=== PATIENT | male | born 1975 | race Asian ===

== ENCOUNTER → 2017-10-05 09:05 | Outpatient (CLI) | payer OTHER, SELFPAY ==
[2017-10-05 10:26] LABS: Hematocrit 45.9 % (40-54); Hemoglobin 15.6 g/dl (13.0-16.5); Mean Corpuscular Hgb 28.6 pg (27.0-32.0); Mean Corpuscular Volume 84.2 fL (80-94); Mean Platelet Vol. 11.5 fl (6.2-12.0); Platelet Count 228 K/mm3 (150-450); RBC Distribution Width SD 40.2 fl (35.1-43.9); Red Blood Count 5.45 M/mm3 (4.6-6.2); Scan Indicated on CBC? Y/N NO; White Blood Count 5.5 K/mm3 (4.4-11.0)
[2017-10-05 11:10] LABS: ALB/GLOB Ratio 0.9 RATIO (0.9-2.4); AST(SGOT) 22 U/L (15-37); Alanine Aminotransfer ALT/SGPT 37 U/L (16-61); Alkaline Phosphatase 63 U/L (45-117); Anion Gap 7 (5-15); BUN 9 mg/dL (7-18); BUN/Creat Ratio 10.3 RATIO (10-20); Calcium,Total 8.9 mg/dL (8.5-10.1); Chloride 102 mmol/L (98-107); Cholesterol 226 mg/dL (200); Creatinine, Serum 0.88 mg/dL (0.70-1.30); EST Glomerular Filtration Rate 102 mL/min (>60); Est Glom Filt Rate - Afr Amer 124 mL/min (>60); Globulin 4.5 g/dL (2.2-4.2); Glucose 97 mg/dL (74-106); High Density Lipoprotein 43 mg/dL; Potassium 3.8 mmol/L (3.5-5.1); Protein, Total 8.5 g/dL (6.4-8.2); Sodium Level 137 mmol/L (136-145); Thyroid Stim Hormone (TSH) 2.44 uIU/mL (0.358-3.74); Triglycerides 160 mg/dL; Very Low Density Lipoprotein 32 mg/dL (5-40)
== END ==
PROVIDERS: Family Provider Internal Medicine; PCP Internal Medicine; Visit Provider Nurse Practitioner Family
DX: Z13.0 Encounter for screening for diseases of the blood and blood-forming organs and certain disorders involving the immune mechanism (principal); Z13.29 Encounter for screening for other suspected endocrine disorder; Z13.220 Encounter for screening for lipoid disorders
CPT/HCPCS: 36415; 80053; 80061; 84443; 85027

== ENCOUNTER → 2018-03-29 16:26 | Outpatient (CLI) | payer OTHER, SELFPAY ==
[2018-03-29 18:54] LABS: Absolute Lymphocyte Count 2.27 X10^3/ul (0.83-4.51); Absolute Neutrophil Count 4.5 X10^3/uL (2.0-7.7); Basophil# 0.04 X10^3/uL; Basophil% 0.5 % (0-1); Eosinophil# 0.12 X10^3/uL; Eosinophils% 1.6 % (0-5); Hematocrit 42.7 % (40-54); Hemoglobin 14.4 g/dl (13.0-16.5); Lymphocyte # 2.27 X10^3/ul (4.0); Lymphocyte % 30.6 % (19-41); Mean Corp Hgb Conc 33.7 g/gl (32-36); Mean Corpuscular Hgb 28.1 pg (27.0-32.0); Mean Corpuscular Volume 83.4 fL (80-94); Mean Platelet Vol. 11.1 fl (6.2-12.0); Monocyte# 0.48 X10^3/uL; Monocyte% 6.5 % (0-10); Neutrophil # 4.49 X10^3/uL (2.7-7.7); Neutrophil % 60.7 % (47-70); POSITIVE COUNT NO; POSITIVE DIFFERENTIAL NO; POSITIVE MORPHOLOGY NO; Platelet Count 237 K/mm3 (150-450); RBC Distribution Width SD 39.7 fl (35.1-43.9); Red Blood Count 5.12 M/mm3 (4.6-6.2); White Blood Count 7.4 K/mm3 (4.4-11.0)
[2018-03-29 19:05] LABS: ALB/GLOB Ratio 0.9 RATIO (0.9-2.4); AST(SGOT) 22 U/L (15-37); Alanine Aminotransfer ALT/SGPT 33 U/L (16-61); Albumin, Serum 3.9 g/dL (3.2-5.0); Alkaline Phosphatase 65 U/L (45-117); Anion Gap 8 (5-15); BUN 9 mg/dL (7-18); BUN/Creat Ratio 8.3 RATIO (10-20); Calcium,Total 8.7 mg/dL (8.5-10.1); Chloride 104 mmol/L (98-107); Creatinine, Serum 1.08 mg/dL (0.70-1.30); EST Glomerular Filtration Rate 80 mL/min (>60); Est Glom Filt Rate - Afr Amer 97 mL/min (>60); Globulin 4.3 g/dL (2.2-4.2); Glucose 80 mg/dL (74-106); Potassium 3.7 mmol/L (3.5-5.1); Protein, Total 8.2 g/dL (6.4-8.2); Sodium Level 139 mmol/L (136-145)
== END ==
PROVIDERS: Family Provider Internal Medicine; PCP Internal Medicine; Visit Provider Internal Medicine
DX: R10.9 Unspecified abdominal pain (principal)
CPT/HCPCS: 36415; 80053; 85025

== ENCOUNTER → 2018-03-30 07:27 | Outpatient (CLI) | payer OTHER, SELFPAY | PROVIDERS: Family Provider Internal Medicine; PCP Internal Medicine; Visit Provider Internal Medicine | DX: R10.9 Unspecified abdominal pain (principal) | CPT/HCPCS: 82274 ==

== ENCOUNTER 2019-08-01 06:42 | Day surgery (SDC) | payer OTHER, SELFPAY ==
--- NOTE | 2019-06-20 02:26 | HP_ITS ---
Intake Vital Signs 06/20/19 Body Mass Index (BMI) 28.0 06/20/19 Height 5 ft 7 in 06/20/19 Weight: 190 lb 06/20/19 Body Mass Index (BMI) 29.7 06/20/19 Blood Pressure 146/90 H 06/20/19 Blood Pressure Location Rt brachial 06/20/19 Blood Pressure Position Sitting 06/20/19 Respiratory Rate 18 06/20/19 Pulse Rate 92 06/20/19 Pulse Source Monitor 06/20/19 Temperature 98.1 F 06/20/19 Temperature Source Oral 06/20/19 Pulse Ox 95 06/20/19 Oxygen Delivery Method room air Intake Visit Reasons: DYSPEPSIA Chief Complaint: Abdominal pain Transfer Car Operator Required: No Accompanied by: Is patient in pain?: No Allergies No Known Allergies Allergy (Verified 06/20/19 13:11) [facility] Medical History GERD (gastroesophageal reflux disease) (Chronic) Hypertension (Chronic) Cataract (Acute) Glaucoma (Acute) Abdominal pain (Chronic) Tinea capitis (Chronic) Surgical History History of appendectomy (Acute) Family History Grandfather Colon cancer Social History (Updated 06/20/19 @ 14:26 by Jose Daniel Dykes MD) Smoking Status: Former smoker how long ago did patient quit smokin alcohol intake: current alcohol intake frequency: holidays/special occasions only substance use type: does not use what type of physical activity do you participate in: none HPI HPI HPI: ZACH CAPPS, is a 43 M who presents to the office today for HPI HPI Surgical H&P: Yes HPI: ZACH CAPPS, is a 43 M who presents to the office today for surgical consultation regarding postprandial abdominal pain. The patient is referred by Dr Dixon Ospina written copy of my surgical consult recommendations will return to him. 43-year-old gentleman. Claims that over the past 1 year he has had diffuse abdominal discomfort cramping. No fever or chills or sweats. Slight nausea no real vomiting. He claims that if he eats a late lunch and a late dinner he will awaken with cramping. If he eats his meals at a normal time he does not have the discomfort. He has a family history with a grandfather who had colon cancer. He has not noticed any bright red blood per rectum or melena. He has not had any weight loss over the past year. He is not had any CT imaging. There is been no presentations to the emergency room or hospitalizations for symptoms that would correlate with a bowel obstruction. He does not describe a particular location of the pain simply states that it is diffuse and aching ROS General General: No weight change, appetite, fatigue, colon cancer, breast cancer or weakness HEENT HEENT: No difficulty swallowing, eye injury, eye surgery, swollen glands or hoarseness Endo Endocrine: No thyroid disease, diabetes mellitus, thyroid cancer, Hair loss, heat intolerance or cold intolerance Skin Skin: No rash or changing moles Breast Breast: No left breast lump, right breast lump, nipple discharge, breast pain, abnormal mammogram, abnormal US or breast enlargement Musc Musculoskeletal: No back problems, arthritis, rheumatoid arthritis, gout or joint pain Cardio Cardiovascular: No murmur, pacemaker, heart disease, atrial fibrillation, high blood pressure, heart attack, heart stent, palpitations, shortness of breat with exertion or chest pain Psych Psychiatric: Yes anxiety; no depression or hearing voices Resp Respiratory: No shortness of breath, No sleep apnea, No cough, No COPD, No asthma, No emphysema, No wheezing Gastro Gastrointestinal: Yes abdominal pain, No nausea or vomiting, No diarrhea, No constipation, No blood in stool, No acid reflux, No hemorrhoids, No ulcers, No gallbladder problem, No black,tarry stools Henrry Hematologic: No blood thinners, No blood disorders, No bleeding, No anemia, No blood clots Neuro Neurologic: No system reviewed and no additional complaints, except as docu, No as per HPI, No abnormal walking, No abnormal hearing, No abnormal movements, No abnormal speech, No behavioral changes, No burning sensations, No confusion, No seizure-like activity, No unsteadiness, No dizziness, No localized weakness, No frequent falls, No headache(s), No lack of coordination, No loss of vision, No memory loss, No numbness, No other visual disturbances, No radiating pain, No restless legs, No sensory deficit, No fainting, No tingling, No tremor(s), No weakness, No other Exam Const General: cooperative, comfortable, no acute distress Nutritional Appearance: overweight Orientation: alert, awake Chest Breast Palpation: No nipple discharge Resp Effort & Inspection: normal respiratory effort Auscultation: clear to auscultation bilaterally Cardio Rate: regular rate Rhythm: regular rhythm Heart Sounds: no murmurs GI Palpation: soft, no hepatosplenomegaly Auscultation: normal bowel sounds Neuro Cognition: normal cognition Extrem General: no calf tenderness bilaterally Psych Affect: normal affect Assessment & Plan Problems 1. Generalized abdominal pain R10.84 Plan Generalized abdominal pain typically postprandially but only if he eats late. Very nonspecific presentation. Family history of colon cancer in a grandfather. Symptoms improved with proton pump inhibitor omeprazole but with the effects then waning and symptoms recurring despite its use. Benign clinical exam of the abdomen I have offered the patient a esophagogastroduodenoscopy with possible biopsy and colonoscopy with possible biopsy or polypectomy is indicated. I am not getting a clear etiology as the potential source of his discomfort based upon his history and physical exam. He is aware that I will consider biopsies were indicated in attempt to try to assist with the diagnosis. He has had an opportunity to ask and have questions answered. We will schedule and proceed at his discretion. I very much appreciate the kind opportunity of assisting with his surgical care. Cc: Dr Dixon Dykes M.D., F.A.C.S. Coding Level of Care Code 63630 Diagnoses Generalized abdominal pain R10.84 ??Abdominal location: generalized 06/20/19 1426 <Electronically signed by Jose Daniel dyson MD> Date _ Jose Daniel Dykes MD I have re-examined the patient. There are no clinical changes since date of exam.
[2019-06-20 13:12] VITALS: BMI 28.0
[2019-08-01] VITALS (8 sets, daily range): BP systolic 94–128; BP diastolic 57–74; PULSE 68–100; RESP 16; TEMP 36.3–37.1; O2SAT 94–100; BMI 29.2
[2019-08-01] MEDS: Lactated Ringers 1,000 ML 100 ML IV (07:24)
--- NOTE | 2019-08-01 08:00 | EGD_PTH ---
PATIENT: ZACH CAPPSOO LOC: EN U#:[id number] AGE/SX: 43/M ROOM: RE08/01/[address]: Dr. Jose Daniel Dykes MD : 1975 BED: DIS: 08/01/2019 SPEC #: [id number] RECD: 08/01/19 09:49 STATUS: RAPHAEL ALLY #: [id number] ALANA: 08/01/19 08:[address]: Jose Daniel Dykes DEPT: SURGICAL PATHOLOGY RECD BY: Nba Velasco ENTERED: 08/01/19 13:15 SP TYPE: EGD BIOPSY OTHR DR: No Primary Care Phys Tissues: A - Duodenum, NOS B - Gastric mucous membrane C - Esophageal mucous membrane D - Esophageal mucous membrane E - Ileum, NOS F - COLON BIOPSY Procedures: Special Stain Group II Surgery Specimen Level IV Alcian Blue/PAS (control) HEADER OPERATION: Colonoscopy, E[place] [place] PRE[place]OP DIAGNOSIS: Generalized abdomen pain TISSUE SUBMITTED: A - Duodenum biopsy, B - Prepyloric ulcer biopsy for H. pylori and path, C - Distal esophagus biopsy, D - Mid esophagus biopsy, E - Ileocecal valve biopsy, F - Random colon biopsies MICROSCOPIC DIAGNOSIS A. Duodenum, biopsy: A fragment of duodenal mucosa with Linus gland hyperplasia. B. Prepyloric ulcer, biopsy: Fragments of gastric mucosa with focal ulceration, acute inflammation and moderate chronic inflammation. See comment. C. Distal esophagus, biopsy: A fragment of gastroesophageal mucosa with moderate chronic inflammation. Intestinal metaplasia (goblet cell metaplasia) is not identified. See comment. D. Mid esophagus, biopsy: Fragments of squamous epithelium, no pathologic diagnosis. E. Ileocecal valve, biopsy: Fragments of small intestinal mucosa, no pathologic diagnosis. F. Colon, random biopsy: Fragments of colonic mucosa, no pathologic diagnosis. SJ:seamus 08/02/19 COMMENT B. The results of immunohistochemistry for Helicobacter pylori will be reported separately ([id number]). C. Alcian blue/PAS stain with matched control is used in the evaluation of the specimen. MICROSCOPIC DESCRIPTION Slides are reviewed. GROSS DESCRIPTION A - Received in fixative is one container labeled with the patient's name and designated duodenum biopsy. The specimen consists of one irregular fragment of light oliva soft tissue that measures 0.4 x 0.4 x 0.1 cm. The specimen is totally submitted in one cassette. B - Received in fixative is one container labeled with the patient's name and designated prepyloric ulcer biopsy. The specimen consists of one irregular fragment of light oliva soft tissue that measures 0.4 x 0.4 x 0.1 cm. The specimen is totally submitted in one cassette. C - Received in fixative is one container labeled with the patient's name and designated distal esophagus biopsy. The specimen consists of one irregular fragment of light oliva soft tissue that measures 0.5 x 0.3 x 0.1 cm. The specimen is totally submitted in one cassette. D - Received in fixative is one container labeled with the patient's name and designated mid esophagus biopsy. The specimen consists of two irregular fragments of light oliva soft tissue that in aggregate measure 0.6 x 0.2 x 0.1 cm. The specimen is totally submitted in one cassette. E - Received in fixative is one container labeled with the patient's name and designated ileocecal valve biopsy. The specimen consists of two irregular fragments of light oliva soft tissue that in aggregate measure 0.4 x 0.4 x 0.1 cm. The specimen is totally submitted in one cassette. F - Received in fixative is one container labeled with the patient's name and designated random colon biopsy. The specimen consists of multiple irregular fragments of light oliva soft tissue that in aggregate measure 1 x 0.5 x 0.1 cm. The specimen is totally submitted in one cassette. / RAMÓN:seamus 08/01/19 TC:2 CPT: 95309 x6, 65992
--- NOTE | 2019-08-01 08:00 | IMM_PTH ---
PATIENT: ZACH CAPPS IVETTE LOC: EN U#:[id number] AGE/SX: 43/M ROOM: RE08/01/[address]: Dr. Jose Daniel Dykes MD : 1975 BED: DIS: 08/01/2019 SPEC #: [id number] RECD: 08/01/19 12:36 STATUS: RAPHAEL REBrandee #: [id number] ALANA: 08/01/19 08:[address]: Jose Daniel Dykes DEPT: IMMUNOHISTOCHEMISTRY RECD BY: Gracia Ogden ENTERED: 08/01/19 12:37 SP TYPE: IMMUNO OTHR DR: Vivienne Primary Care Phys Tissues: B - Pyloric portion of stomach Procedures: H Pylori (initial) PHYSICIAN & INSTITUTION [place] [address] SPECIMEN INFORMATION: Tissue Source: B - Prepyloric ulcer biopsy Clinical Info: Abdomen pain Specimen Number: [id number] CPT code: 17126 METHODOLOGY: Deparaffinized sections of prefer/formalin-fixed tissue or PAP/DQ stained slides are incubated with monoclonal/polyclonal antibodies/oligonucleotide probes. Localization is made via biotin free immunoperoxidase method. Appropriate controls are performed and reacted as expected. Results on target cell population are indicated in the following table: RESULTS: ANTIBODY / CLONE RESULT Block B H Pylori (polyclonal) positive These tests were developed and their performance characteristics determined by [facility]. They may not have been cleared or approved by the U.S. Food and Drug Administration. The FDA has determined that such clearance or approval is not necessary. INTERPRETATION: B. Prepyloric ulcer biopsy: Positive for numerous H. pylori organisms. SJ:seamus 08/02/19
--- NOTE | 2019-08-01 08:40 | OP.CCLET_ITS ---
08/01/2019 No Primary Care Physician Re : Upper GI endoscopy procedure for Erasmo Rhodes Dear Care Physician This procedure was performed on Thursday, August 01, 2019. My impressions and recommendations are as follows: Impressions : - Z-line variable, 40 cm from the incisors. Biopsied. - Normal mid esophagus. Biopsied. - Non-bleeding gastric ulcer with no stigmata of bleeding. Findings suggest possible very small healed ulcer. Biopsied. - Normal examined duodenum. Biopsied. Recommendations : - Discharge patient to home. - Resume previous diet. - Continue present medications. - Use Prilosec (omeprazole) 40 mg PO daily for 1 month. - Telephone my office for pathology results in 1 week. My findings are described in the full procedure note, which is enclosed. If I can be of further assistance, please feel free to contact me at Doctor phone number(s): Work: . Sincerely, Jose Daniel Dykes MD 08/01/2019 8:40:01 AM This report has been signed electronically.
--- NOTE | 2019-08-01 08:40 | OP.EGD_ITS ---
Patient Name: Erasmo Rhodes Procedure Date: 08/01/2019 8:05 AM Date of : 1975 Age: 43 Procedure: Upper GI endoscopy Indications: Epigastric abdominal pain Providers: Jose Daniel Dykes MD Referring MD: Jose Daniel Dykes MD Medicines: See the Anesthesia note for documentation of the administered medications Complications: No immediate complications. Procedure: Pre-Anesthesia Assessment: - Prior to the procedure, a History and Physical was performed, and patient medications and allergies were reviewed. The patient's tolerance of previous anesthesia was also reviewed. The risks and benefits of the procedure and the sedation options and risks were discussed with the patient. All questions were answered, and informed consent was obtained. Prior Anticoagulants: The patient has taken no previous anticoagulant or antiplatelet agents. ASA Grade Assessment: II - A patient with mild systemic disease. After reviewing the risks and benefits, the patient was deemed in satisfactory condition to undergo the procedure. After obtaining informed consent, the endoscope was passed under direct vision. Throughout the procedure, the patient's blood pressure, pulse, and oxygen saturations were monitored continuously. The gastroscope was introduced through the mouth, and advanced to the second part of duodenum. The upper GI endoscopy was accomplished without difficulty. The patient tolerated the procedure well. Scope In: 8:17:20 AM Scope Out: 8:23:13 AM Total Procedure Duration Time 0 hours 5 minutes 53 seconds Findings: The Z-line was variable and was found 40 cm from the incisors. Biopsies were taken with a cold forceps for histology. The mid esophagus was normal. Biopsies were taken with a cold forceps for histology. One non-bleeding superficial gastric ulcer with no stigmata of bleeding was found in the prepyloric region of the stomach. The lesion was less than one mm in largest dimension. Biopsies were taken with a cold forceps for histology. The examined duodenum was normal. Biopsies were taken with a cold forceps for histology. Impression: - Z-line variable, 40 cm from the incisors. Biopsied. - Normal mid esophagus. Biopsied. - Non-bleeding gastric ulcer with no stigmata of bleeding. Findings suggest possible very small healed ulcer. Biopsied. - Normal examined duodenum. Biopsied. Recommendation: - Discharge patient to home. - Resume previous diet. - Continue present medications. - Use Prilosec (omeprazole) 40 mg PO daily for 1 month. - Telephone my office for pathology results in 1 week. Procedure Code(s): --- Professional --- 55581, Esophagogastroduodenoscopy, flexible, transoral; with biopsy, single or multiple Diagnosis Code(s): --- Professional --- K22.8, Other specified diseases of esophagus K25.9, Gastric ulcer, unspecified as acute or chronic, without hemorrhage or perforation R10.13, Epigastric pain CPT copyright 2017 [employer]. All rights reserved. The codes documented in this report are preliminary and upon residential direct support professional review may be revised to meet current compliance requirements. Jose Daniel Dykes MD 08/01/2019 8:40:01 AM This report has been signed electronically. Number of Addenda: 0 Note Initiated On: 08/01/2019 8:05 AM
--- NOTE | 2019-08-01 08:44 | OP.COLON_ITS ---
Patient Name: Erasmo Rhodes Procedure Date: 08/01/2019 8:03 AM Date of : 1975 Age: 43 Procedure: Colonoscopy Indications: Generalized abdominal pain Providers: Jose Daniel Dykes MD Referring MD: Jose Daniel Dykes MD Medicines: See the Anesthesia note for documentation of the administered medications Patient Profile: Last Colonoscopy: none. The patient's first colonoscopy is today. Complications: No immediate complications. Procedure: Pre-Anesthesia Assessment: - Prior to the procedure, a History and Physical was performed, and patient medications and allergies were reviewed. The patient's tolerance of previous anesthesia was also reviewed. The risks and benefits of the procedure and the sedation options and risks were discussed with the patient. All questions were answered, and informed consent was obtained. Prior Anticoagulants: The patient has taken no previous anticoagulant or antiplatelet agents. ASA Grade Assessment: II - A patient with mild systemic disease. After reviewing the risks and benefits, the patient was deemed in satisfactory condition to undergo the procedure. After I obtained informed consent, the scope was passed under direct vision. Throughout the procedure, the patient's blood pressure, pulse, and oxygen saturations were monitored continuously. The Colonoscope was introduced through the anus and advanced to the cecum, identified by appendiceal orifice and ileocecal valve. The colonoscopy was performed without difficulty. The patient tolerated the procedure well. The quality of the bowel preparation was good. The ileocecal valve and the appendiceal orifice were photographed. Scope In: 8:25:54 AM Scope Withdrawal Time 0 hours 7 minutes 18 seconds Scope Out: 8:35:16 AM Total Procedure Duration Time 0 hours 9 minutes 22 seconds Findings: Hemorrhoids were found on perianal exam. Normal mucosa was found at the ileocecal valve. Biopsies were taken with a cold forceps for histology. The colon (entire examined portion) appeared normal. Biopsies for histology were taken with a cold forceps from the entire colon for evaluation of microscopic colitis. Impression: - Hemorrhoids found on perianal exam. - Normal mucosa at the ileocecal valve. Biopsied. - The entire examined colon is normal. Biopsied. Recommendation: - Discharge patient to home. - Resume previous diet. - Continue present medications. - Repeat colonoscopy in 10 years. - Telephone my office for pathology results in 1 week. Procedure Code(s): --- Professional --- 88605, Colonoscopy, flexible; with biopsy, single or multiple Diagnosis Code(s): --- Professional --- K64.9, Unspecified hemorrhoids R10.84, Generalized abdominal pain CPT copyright 2017 [employer]. All rights reserved. The codes documented in this report are preliminary and upon information coder review may be revised to meet current compliance requirements. Jose Daniel Dykes MD 08/01/2019 8:43:41 AM This report has been signed electronically. Number of Addenda: 0 Note Initiated On: 08/01/2019 8:03 AM
--- NOTE | 2019-08-01 08:44 | OP.CCLET_ITS ---
08/01/2019 No Primary Care Physician Re : Colonoscopy procedure for Erasmo Rhodes Dear Care Physician This procedure was performed on Thursday, August 01, 2019. My impressions and recommendations are as follows: Impressions : - Hemorrhoids found on perianal exam. - Normal mucosa at the ileocecal valve. Biopsied. - The entire examined colon is normal. Biopsied. Recommendations : - Discharge patient to home. - Resume previous diet. - Continue present medications. - Repeat colonoscopy in 10 years. - Telephone my office for pathology results in 1 week. My findings are described in the full procedure note, which is enclosed. If I can be of further assistance, please feel free to contact me at Doctor phone number(s): Work: . Sincerely, Jose Daniel Dykes MD 08/01/2019 8:43:41 AM This report has been signed electronically.
--- NOTE | 2019-08-07 11:37 | HP.PCM_ITS ---
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 Accompanied by: Is patient in pain?: No Allergies No Known Allergies Allergy (Verified 06/20/19 13:11) [facility] Medical History GERD (gastroesophageal reflux disease) (Chronic) Hypertension (Chronic) Cataract (Acute) Glaucoma (Acute) Abdominal pain (Chronic) Tinea capitis (Chronic) Surgical History History of appendectomy (Acute) Family History Grandfather Colon cancer Social History (Updated 06/20/19 @ 14:26 by Jose Daniel Dykes MD) Smoking Status: Former smoker how long ago did patient quit smokin alcohol intake: current alcohol intake frequency: holidays/special occasions only substance use type: does not use what type of physical activity do you participate in: none HPI HPI HPI: ZACH CAPPS, is a 43 M who presents to the office today for HPI HPI Surgical H&P: Yes HPI: ZACH CAPPS, is a 43 M who presents to the office today for surgical consultation regarding postprandial abdominal pain. The patient is referred by Dr Dixon Ospina written copy of my surgical consult recommendations will return to him. 43-year-old gentleman. Claims that over the past 1 year he has had diffuse abdominal discomfort cramping. No fever or chills or sweats. Slight nausea no real vomiting. He claims that if he eats a late lunch and a late dinner he will awaken with cramping. If he eats his meals at a normal time he does not have the discomfort. He has a family history with a grandfather who had colon cancer. He has not noticed any bright red blood per rectum or melena. He has not had any weight loss over the past year. He is not had any CT imaging. There is been no presentations to the emergency room or hospitalizations for symptoms that would correlate with a bowel obstruction. He does not describe a particular location of the pain simply states that it is diffuse and aching ROS General General: No weight change, appetite, fatigue, colon cancer, breast cancer or weakness HEENT HEENT: No difficulty swallowing, eye injury, eye surgery, swollen glands or hoarseness Endo Endocrine: No thyroid disease, diabetes mellitus, thyroid cancer, Hair loss, heat intolerance or cold intolerance Skin Skin: No rash or changing moles Breast Breast: No left breast lump, right breast lump, nipple discharge, breast pain, abnormal mammogram, abnormal US or breast enlargement Musc Musculoskeletal: No back problems, arthritis, rheumatoid arthritis, gout or joint pain Cardio Cardiovascular: No murmur, pacemaker, heart disease, atrial fibrillation, high blood pressure, heart attack, heart stent, palpitations, shortness of breat with exertion or chest pain Psych Psychiatric: Yes anxiety; no depression or hearing voices Resp Respiratory: No shortness of breath, No sleep apnea, No cough, No COPD, No asthma, No emphysema, No wheezing Gastro Gastrointestinal: Yes abdominal pain, No nausea or vomiting, No diarrhea, No con stipation, No blood in stool, No acid reflux, No hemorrhoids, No ulcers, No gallbladder problem, No black,tarry stools Henrry Hematologic: No blood thinners, No blood disorders, No bleeding, No anemia, No blood clots Neuro Neurologic: No system reviewed and no additional complaints, except as docu, No as per HPI, No abnormal walking, No abnormal hearing, No abnormal movements, No abnormal speech, No behavioral changes, No burning sensations, No confusion, No seizure-like activity, No unsteadiness, No dizziness, No localized weakness, No frequent falls, No headache(s), No lack of coordination, No loss of vision, No memory loss, No numbness, No other visual disturbances, No radiating pain, No restless legs, No sensory deficit, No fainting, No tingling, No tremor(s), No weakness, No other Exam Const General: cooperative, comfortable, no acute distress Nutritional Appearance: overweight Orientation: alert, awake Chest Breast Palpation: No nipple discharge Resp Effort & Inspection: normal respiratory effort Auscultation: clear to auscultation bilaterally Cardio Rate: regular rate Rhythm: regular rhythm Heart Sounds: no murmurs GI Palpation: soft, no hepatosplenomegaly Auscultation: normal bowel sounds Neuro Cognition: normal cognition Extrem General: no calf tenderness bilaterally Psych Affect: normal affect Assessment & Plan Problems 1. Generalized abdominal pain R10.84 Plan Generalized abdominal pain typically postprandially but only if he eats late. Very nonspecific presentation. Family history of colon cancer in a grandfather. Symptoms improved with proton pump inhibitor omeprazole but with the effects then waning and symptoms recurring despite its use. Benign clinical exam of the abdomen I have offered the patient a esophagogastroduodenoscopy with possible biopsy and colonoscopy with possible biopsy or polypectomy is indicated. I am not getting a clear etiology as the potential source of his discomfort based upon his history and physical exam. He is aware that I will consider biopsies were indicated in attempt to try to assist with the diagnosis. He has had an opportunity to ask and have questions answered. We will schedule and proceed at his discretion. I very much appreciate the kind opportunity of assisting with his surgical care. Cc: Dr Dixon Dykes M.D., F.A.C.S. Coding Level of Care Code 42591 Diagnoses Generalized abdominal pain R10.84 ??Abdominal location: generalized I have re-examined the patient. There are no clinical changes since date of exam. This history and physical was redone on the day of his procedure August 02, 2019. Somehow however the redo H&P was electronically lost. This is a delayed repeat of the plan of approach. That was to proceed with combined esophagogastroduodenoscopy with biopsy and colonoscopy with biopsy or polypectomy is indicated Jose Daniel Dykes M.D., F.A.C.S.
== END 2019-08-01 09:31 | disposition home or self-care (01) ==
LOC: EN 06:47 → AC 06:48
PROVIDERS: Referring Provider Surgery; Visit Provider Surgery
PROC: 0DJD8ZZ Inspection of Lower Intestinal Tract, Via Natural or Artificial Opening Endoscopic (ICD-10-PCS; CPT 45378; principal; 2019-08-01 07:55)
DX: K22.8 Other specified diseases of esophagus (principal); K25.9 Gastric ulcer, unspecified as acute or chronic, without hemorrhage or perforation; K29.50 Unspecified chronic gastritis without bleeding; B96.81 Helicobacter pylori [H. pylori] as the cause of diseases classified elsewhere; K64.9 Unspecified hemorrhoids; K21.9 Gastro-esophageal reflux disease without esophagitis; R10.84 Generalized abdominal pain; R03.0 Elevated blood-pressure reading, without diagnosis of hypertension; E66.3 Overweight; Z68.29 Body mass index [BMI] 29.0-29.9, adult; Z87.891 Personal history of nicotine dependence
CPT/HCPCS: 43239; 45380; 88305; 88313; 88342; J7120; J2405

== ENCOUNTER → 2019-09-26 | Outpatient (CLI) | payer OTHER, SELFPAY ==
[2019-08-01 07:08] VITALS: BMI 29.2
[2019-09-28 16:41] LABS: H.Pylori Breath Test Negative (Negative)
== END | disposition home or self-care (01) ==
LOC: LABSPEC 16:20
PROVIDERS: Referring Provider Surgery; Visit Provider Surgery
DX: A04.8 Other specified bacterial intestinal infections (principal)
CPT/HCPCS: 83013

== ENCOUNTER 2020-07-17 19:28 | Emergency (ER) | payer OTHER, SELFPAY ==
[2019-08-01 07:08] VITALS: BMI 29.2
[2020-07-17 19:28] VITALS: BP 172/89; PULSE 131; RESP 18; TEMP 36.9; O2SAT 97; BMI 29.9
--- NOTE | 2020-07-17 19:51 | CT_ITS ---
STUDY: CT BRAIN WITHOUT CONTRAST REASON FOR EXAM: Male, 44 years old. DRINKING AND FELL OFF STOOL. 2CM LAC TO BACK OF HEAD RADIATION DOSAGE (If Supplied By Facility): CTDIvol = ( 44.99 ) mGy, DLP = ( 812.98 ) mGycm TECHNIQUE: Transaxial CT imaging of the brain was performed without administration of intravenous contrast material. Individualized dose optimization techniques were used for this CT. COMPARISON: No relevant priors. FINDINGS: There is left parietal subcutaneous hematoma measuring 4 cm in greatest diameter. Normal calvarium. Normal size ventricles and extra-axial spaces for the patient''s age. Normal white matter tracts of the cerebral hemispheres. Normal basal ganglia and thalami. Normal brainstem. Normal cerebellum. There is no intracranial hemorrhage. There are no findings of an acute ischemic infarction. Normal visualized paranasal sinuses. CT/Brain/Head without Contrast IMPRESSION: There is no acute intracranial abnormality. Electronically Signed: Marty Epstein, at 20:16 EST Tel , Service support ,
--- NOTE | 2020-07-17 19:51 | ED.DCSUM_ITS ---
History of Present Illness Chief Complaint: Head Injury Informant: Patient Narrative: 44-year-old male presenting with laceration to scalp. He states he was standing on a chair in the kitchen and fell hitting his head. He states he did not catch himself with his hands. He was not knocked out but was seeing stars. He has no dizziness, lightheadedness, nausea, vomiting. Patient states that he was having a drink prior to this. He states he did not drink very much and was not intoxicated. He is not an everyday drinker. He denies any medical problems. Last tetanus is unknown. - Past Medical History (1) GERD (gastroesophageal reflux disease) Status: Chronic (2) Hypertension Status: Chronic Past Medical History - Allergies and Home Meds Allergies/Adverse Reactions: Allergies No Known Allergies Allergy (Verified 09/11/19 14:55) Primary Care Physician: Care Physician,No Primary [Primary Care Provider] - Prior records reviewed: Yes Past Medical History: - - Reviewed in problem list Surgical History: noncontributory Lives: Alone Smoking Status: Current every day smoker Alcohol: Occasional Drugs: None Review of Systems General: Denies: Chills, Fever, Sweats Eyes: Denies: Visual changes - bilaterally, Diplopia ENT: Denies: Rhinorrhea, Sore throat Cardiovascular: Denies: Chest pain, Palpitations Respiratory: Denies: Dyspnea, Cough, Dyspnea on exertion Gastrointestinal: Denies: Abdominal pain, Nausea, Vomiting, Diarrhea, Melena, Hematochezia Genitourinary: Denies: Dysuria, Hematuria, Frequency Musculoskeletal: Denies: Back pain, Extremity Pain Skin: Reports: Wounds - Cephalohematoma of left posterior scalp and scalp laceration. Denies: Rash Neurological: Reports: Headache. Denies: Parasthesia, Numbness Psych: Denies: Depression, Anxiety Physical Exam Vital Signs/Narrative: Vital Signs Temp Pulse Resp BP Pulse Ox 07/17/20 19:28 98.5 F 131 H 18 172/89 H 97 Inital Vital Signs reviewed: Yes General: Well nourished, No Acute Distress Head: Normocephalic Eyes: Perrl, EOMI ENT: Moist mucous membranes, No rhinorrhea Cardiovascular: Regular rate, Regular rhythm Respiratory: No distress, CTA bilaterally Abdomen: Soft, Nontender Back: Nontender, Normal Inspection Skin: - - 3 cm cephalohematoma on the left side of the posterior scalp with dried blood in hair. Laceration not well visualized. Neurological: Alert, Oriented x3, Cranial nerves II-XII grossly intact Psychological: Normal affect, Normal Mood Diagnostic/Tx/Re-eval Clinical Impression(s) from Imaging Studies Brain CT 07/17/20 19:51 IMPRESSION: There is no acute intracranial abnormality. Electronically Signed: Marty Epstein, at 20:16 EST Tel , Service support , - Medical Decision Making 44-year-old male presenting with cephalohematoma from a fall on his head. He has no dizziness, lightheadedness, nausea, vomiting. His bleeding has resolved. Patient had CT brain which shows no acute intracranial process. Patient's woun d was clean and there appears to be a small area of macerated tissue however there is no laceration that needs to be stapled. Patient's tetanus was updated today. Patient was given return precautions but likely will just need to follow-up with his PCP. Patient stable for discharge at this time. Impression: 1. Closed head injury 2. Cephalohematoma 3. Scalp abrasion ED Disposition - Plan for ED Patient: Disposition: Home or Assisted Living Instructions: ED Scalp Contusion, ED Hematoma Referrals: Care Physician,No Primary [Primary Care Provider] -
[2020-07-17] MEDS: Diphth,Pertuss(Acell),Tet Vac 0.5 ML Vial IM (20:13)
== END 2020-07-17 21:26 | disposition home or self-care (01) ==
PROVIDERS: Emergency Provider Student in an Organized Health Care Education/Training Program
DX: S00.01XA Abrasion of scalp, initial encounter (principal); S00.03XA Contusion of scalp, initial encounter; W07.XXXA Fall from chair, initial encounter; Y93.89 Activity, other specified; Y92.9 Unspecified place or not applicable; Y99.9 Unspecified external cause status; I10 Essential (primary) hypertension; F17.200 Nicotine dependence, unspecified, uncomplicated
CPT/HCPCS: 90471; 70450; 90715; 99284

== ENCOUNTER → 2021-01-31 07:30 | Outpatient (CLI) | payer MEDICAID, SELFPAY ==
[2021-01-28 14:32] VITALS: BMI 29.7
[2021-02-05 09:51] LABS: H. PYLORI STOOL AG Negative (Negative)
== END ==
PROVIDERS: Referring Provider Surgery; Visit Provider Surgery
DX: R10.9 Unspecified abdominal pain (principal); Z86.19 Personal history of other infectious and parasitic diseases

== ENCOUNTER → 2021-08-26 | Outpatient (CLI) | payer MEDICAID, SELFPAY | END | disposition home or self-care (01) | PROVIDERS: PCP Family Medicine; Referring Provider Nurse Practitioner Acute Care; Visit Provider Nurse Practitioner Acute Care | DX: G47.33 Obstructive sleep apnea (adult) (pediatric) (principal) | CPT/HCPCS: 95811 ==

== ENCOUNTER → 2021-10-30 | Outpatient (CLI) | payer MEDICAID, SELFPAY | END | disposition home or self-care (01) | LOC: SL 14:28 | PROVIDERS: PCP Family Medicine; Visit Provider Nurse Practitioner Acute Care | DX: Z00.00 Encounter for general adult medical examination without abnormal findings (principal) ==

== ENCOUNTER → 2021-12-02 | Outpatient (CLI) | payer MEDICAID, SELFPAY | END | disposition home or self-care (01) | LOC: SL 12:19 | PROVIDERS: PCP Family Medicine; Visit Provider Nurse Practitioner Acute Care | DX: G47.33 Obstructive sleep apnea (adult) (pediatric) (principal) | CPT/HCPCS: 98960; G0463 ==

== ENCOUNTER → 2022-09-08 | Outpatient (CLI) | payer MEDICAID, SELFPAY | END | disposition home or self-care (01) | LOC: SL 12:05 | PROVIDERS: Visit Provider Nurse Practitioner Acute Care | DX: G47.33 Obstructive sleep apnea (adult) (pediatric) (principal) ==

== ENCOUNTER → 2022-09-16 | Outpatient (CLI) | payer MEDICAID, SELFPAY ==
[2022-09-16 10:21] LABS: Absolute Lymphocyte Count 2.26 X10^3/uL (0.83-4.51); Absolute Neutrophil Count 2.1 X10^3/uL (2.0-7.7); Basophil# 0.04 X10^3/uL; Basophil% 0.8 % (0-1); Eosinophil# 0.12 X10^3/uL; Eosinophils% 2.4 % (0-5); Hematocrit 44.8 % (40-54); Hemoglobin 14.8 g/dL (13.0-16.5); Lymphocyte # 2.26 X10^3/ul (0.83-4.51); Lymphocyte % 44.6 % (19-41); Mean Corpuscular Volume 84.7 fL (80-94); Mean Platelet Vol. 11.4 fl (6.2-12.0); Monocyte# 0.52 X10^3/uL; Monocyte% 10.3 % (0-10); NRBC Flagged by Analyzer 0 % (0-5); Neutrophil # 2.12 X10^3/uL (2.7-7.7); Neutrophil % 41.7 % (47-70); Platelet Count 223 K/mm3 (150-450); RBC Distribution Width CV 13.1 % (11.6-14.6); RBC Distribution Width SD 40.3 fl (35.1-43.9); Red Blood Count 5.29 M/mm3 (4.6-6.2); White Blood Count 5.1 K/mm3 (4.4-11.0)
[2022-09-16 10:38] LABS: ALB/GLOB Ratio 0.9 RATIO (0.9-2.4); AST(SGOT) 26 U/L (15-37); Alanine Aminotransfer ALT/SGPT 44 U/L (16-61); Albumin, Serum 3.9 g/dL (3.2-5.0); Alkaline Phosphatase 66 U/L (45-117); BUN 10 mg/dL (7-18); BUN/Creat Ratio 11.4 RATIO (10-20); Calcium,Total 9.3 mg/dL (8.5-10.1); Chloride 103 mmol/L (98-107); Cholesterol 188 mg/dL (200); Creatinine, Serum 0.88 mg/dL (0.70-1.30); EST Glomerular Filtration Rate 100 mL/min (>60); Est Glom Filt Rate - Afr Amer 121 mL/min (>60); Globulin 4.2 g/dL (2.2-4.2); Glucose 118 mg/dL (74-106); Protein, Total 8.1 g/dL (6.4-8.2); Sodium Level 138 mmol/L (136-145); Triglycerides 156 mg/dL
[2022-09-16 10:39] LABS: Anion Gap 8 (5-15); High Density Lipoprotein 36 mg/dL; Very Low Density Lipoprotein 31 mg/dL (5-40)
[2022-09-16 11:15] LABS: Hepatitis B Surface Antibody Reactive; Hepatitis B Surface Antigen Non-Reactive (Nonreactive); Hepatitis C Antibody Non-Reactive (Nonreactive)
[2022-09-17 19:43] LABS: Hepatitis A IgM Antibody Negative (Negative)
== END | disposition home or self-care (01) ==
LOC: BFHLAB 08:48
PROVIDERS: PCP Family Medicine; Visit Provider Family Medicine
DX: Z00.00 Encounter for general adult medical examination without abnormal findings (principal); G47.33 Obstructive sleep apnea (adult) (pediatric); Z78.9 Other specified health status
CPT/HCPCS: 36415; 80053; 80061; 85025; 86706; 86709; 86803; 87340

== ENCOUNTER → 2023-09-23 | Outpatient (CLI) | payer MEDICAID, SELFPAY ==
[2023-09-23 12:26] LABS: Absolute Neutrophil Count 3.1 X10^3/uL (2.0-7.7); Basophil# 0.07 X10^3/uL; Basophil% 1.1 % (0-1); Eosinophil# 0.13 X10^3/uL; Eosinophils% 2.1 % (0-5); Hematocrit 46.8 % (40-54); Hemoglobin 15.3 g/dL (13.0-16.5); Lymphocyte % 37.2 % (19-41); Mean Corp Hgb Conc 32.7 g/dL (32-36); Mean Corpuscular Hgb 27.8 pg (27.0-32.0); Mean Corpuscular Volume 85.1 fL (80-94); Mean Platelet Vol. 10.7 fl (6.2-12.0); Monocyte# 0.55 X10^3/uL; Monocyte% 8.9 % (0-10); NRBC Flagged by Analyzer 0 % (0-5); Neutrophil # 3.12 X10^3/uL (2.7-7.7); Neutrophil % 50.4 % (47-70); Platelet Count 264 K/mm3 (150-450); RBC Distribution Width CV 12.3 % (11.6-14.6); RBC Distribution Width SD 38.3 fl (35.1-43.9); White Blood Count 6.2 K/mm3 (4.4-11.0)
[2023-09-23 13:27] LABS: ALB/GLOB Ratio 0.9 RATIO (0.9-2.4); AST(SGOT) 45 U/L (15-37); Alanine Aminotransfer ALT/SGPT 78 U/L (16-61); Alkaline Phosphatase 60 U/L (45-117); Anion Gap 9 (5-15); BUN 11 mg/dL (7-18); Calcium,Total 9.3 mg/dL (8.5-10.1); Chloride 98 mmol/L (98-107); Cholesterol 221 mg/dL (200); EST Glomerular Filtration Rate 85 mL/min (>60); Est Glom Filt Rate - Afr Amer 103 mL/min (>60); Globulin 4.4 g/dL (2.2-4.2); Glucose 128 mg/dL (74-106); High Density Lipoprotein 43 mg/dL; Potassium 3.8 mmol/L (3.5-5.1); Protein, Total 8.4 g/dL (6.4-8.2); Sodium Level 133 mmol/L (136-145); Triglycerides 240 mg/dL; Very Low Density Lipoprotein 48 mg/dL (5-40)
[2023-09-23 15:26] LABS: Hemoglobin A1c 6.5 % (3.8-5.6)
[2023-09-23 18:25] LABS: Microalbumin:Creatinine Ratio 7.5 mg/g CRE (<30 mg/g CRE)
== END | disposition home or self-care (01) ==
LOC: BFHLAB 09:03
PROVIDERS: PCP Family Medicine; Visit Provider Family Medicine
DX: E11.9 Type 2 diabetes mellitus without complications (principal); I10 Essential (primary) hypertension
CPT/HCPCS: 36415; 80053; 80061; 82043; 82570; 83036; 85025

== ENCOUNTER → 2024-03-24 | Outpatient (CLI) | payer OTHER, SELFPAY ==
[2024-03-24 12:41] LABS: Absolute Lymphocyte Count 2.31 X10^3/uL (0.83-4.51); Absolute Neutrophil Count 2.8 X10^3/uL (2.0-7.7); Basophil# 0.04 X10^3/uL; Basophil% 0.7 % (0-1); Eosinophil# 0.08 X10^3/uL; Eosinophils% 1.4 % (0-5); Hematocrit 43.7 % (40-54); Hemoglobin 14.2 g/dL (13.0-16.5); Lymphocyte # 2.31 X10^3/ul (0.83-4.51); Lymphocyte % 40.5 % (19-41); Mean Corp Hgb Conc 32.5 g/dL (32-36); Monocyte# 0.51 X10^3/uL; Monocyte% 8.9 % (0-10); NRBC Flagged by Analyzer 0 % (0-5); Neutrophil # 2.75 X10^3/uL (2.7-7.7); Neutrophil % 48.1 % (47-70); Platelet Count 243 K/mm3 (150-450); RBC Distribution Width CV 12.6 % (11.6-14.6); RBC Distribution Width SD 39.7 fl (35.1-43.9); Red Blood Count 5.08 M/mm3 (4.6-6.2); White Blood Count 5.7 K/mm3 (4.4-11.0)
[2024-03-24 12:56] LABS: ALB/GLOB Ratio 0.9 RATIO (0.9-2.4); AST(SGOT) 31 U/L (15-37); Alanine Aminotransfer ALT/SGPT 48 U/L (16-61); Albumin, Serum 3.8 g/dL (3.2-5.0); Alkaline Phosphatase 62 U/L (45-117); Anion Gap 6 (5-15); BUN 11 mg/dL (7-18); BUN/Creat Ratio 12.2 RATIO (10-20); Calcium,Total 9.5 mg/dL (8.5-10.1); Chloride 101 mmol/L (98-107); EST Glomerular Filtration Rate 95 mL/min (>60); Est Glom Filt Rate - Afr Amer 115 mL/min (>60); Globulin 4.3 g/dL (2.2-4.2); Glucose 128 mg/dL (74-106); Potassium 3.9 mmol/L (3.5-5.1); Protein, Total 8.1 g/dL (6.4-8.2); Sodium Level 135 mmol/L (136-145)
== END | disposition home or self-care (01) ==
LOC: BFHLAB 08:12
PROVIDERS: PCP Family Medicine; Referring Provider Family Medicine; Visit Provider Family Medicine
DX: I10 Essential (primary) hypertension (principal); E11.9 Type 2 diabetes mellitus without complications
CPT/HCPCS: 36415; 80053; 85025

== ENCOUNTER → 2024-10-03 | Outpatient (CLI) | payer OTHER, SELFPAY ==
[2024-10-03 12:10] LABS: Hematocrit 44.5 % (40-54); Hemoglobin 15.2 g/dL (13.0-16.5); Mean Corp Hgb Conc 34.2 g/dL (32-36); Mean Corpuscular Hgb 29.5 pg (27.0-32.0); Mean Corpuscular Volume 86.4 fL (80-94); Mean Platelet Vol. 11.1 fl (6.2-12.0); Platelet Count 265 K/mm3 (150-450); RBC Distribution Width CV 12.8 % (11.6-14.6); RBC Distribution Width SD 40.3 fl (35.1-43.9); Red Blood Count 5.15 M/mm3 (4.6-6.2); White Blood Count 6.3 K/mm3 (4.4-11.0)
[2024-10-03 12:35] LABS: ALB/GLOB Ratio 1.2 RATIO (0.9-2.4); AST(SGOT) 61 U/L (<=37); Alanine Aminotransfer ALT/SGPT 132 U/L (<=46); Albumin, Serum 4.4 g/dL (3.5-5.0); Alkaline Phosphatase 71 U/L (40-129); Anion Gap 14 (5-15); BUN 10 mg/dL (4-19); BUN/Creat Ratio 12.2 RATIO (10-20); Calcium,Total 9.5 mg/dL (7.6-11.0); Carbon Dioxide 21.8 mmol/L (21.0-32.0); Chloride 99 mmol/L (98-108); Cholesterol 204 mg/dL (<=200); Creatinine, Serum 0.79 mg/dL (0.70-1.20); EST Glomerular Filtration Rate 110 (>60); Globulin 3.7 g/dL (2.2-4.2); Glucose 182 mg/dL (70-99); High Density Lipoprotein 50 mg/dL; Low Density Lipoprotein Calc. 121 mg/dL; Potassium 3.9 mmol/L (3.3-5.1); Protein, Total 8.1 g/dL (5.9-8.4); Sodium Level 135 mmol/L (133-145); Total Bilirubin 0.48 mg/dL (0.00-1.30); Triglycerides 165 mg/dL; Very Low Density Lipoprotein 33 mg/dL (5-40)
[2024-10-03 15:28] LABS: Microalbumin,Random Urine < 12.0 mg/L (NO RANGE EST.); Microalbumin:Creatinine Ratio UNABLE TO CALCULATE mg/g CRE
[2024-10-03 15:54] LABS: Hemoglobin A1c 8.5 % (<=5.6)
== END | disposition home or self-care (01) ==
LOC: BFHLAB 08:29
PROVIDERS: PCP Family Medicine; Visit Provider Family Medicine
DX: Z00.00 Encounter for general adult medical examination without abnormal findings (principal); E11.9 Type 2 diabetes mellitus without complications; I10 Essential (primary) hypertension
CPT/HCPCS: 36415; 80053; 80061; 82043; 82570; 83036; 85027

== ENCOUNTER → 2024-10-30 | Outpatient (CLI) | payer OTHER, SELFPAY ==
[2024-10-30 13:14] LABS: AST(SGOT) 49 U/L (<=37); Alanine Aminotransfer ALT/SGPT 125 U/L (<=46); Albumin, Serum 4.4 g/dL (3.5-5.0); Alkaline Phosphatase 68 U/L (40-129); Bilirubin, Direct 0.16 mg/dL (0.00-0.30); Globulin 3.6 g/dL (2.2-4.2); Protein, Total 8.1 g/dL (5.9-8.4); Total Bilirubin 0.35 mg/dL (0.00-1.30)
== END | disposition home or self-care (01) ==
LOC: BFHLAB 09:03
PROVIDERS: PCP Family Medicine; Visit Provider Family Medicine
DX: K70.0 Alcoholic fatty liver (principal)
CPT/HCPCS: 36415; 80076

== ENCOUNTER → 2025-01-25 | Outpatient (CLI) | payer OTHER, SELFPAY ==
--- OUTSIDE RECORDS SUMMARY | 2025-01-25 11:55 | XMS RPT_ITS | CCD ---
Author Organization [facility] Care Team Providers Care Adoption Specialist Name Role Phone Loretta CERVANTES, BILLY-C Susannah Attending Provider [phone] Dr. Ceasar Gutierres Primary Care Provider [phone] Dr. Ceasar Gutierres Referring Provider [phone] Hoang Carcamo Attending Provider [phone] Ceasar Gutierres Primary Care Provider [phone] Dr. Ceasar Gutierres Referring Provider [phone] ANNA MARIE Burgos NP Attending Provider Dr. Judy Edmondson MD Primary Care Provider Dr. Judy Edmondson MD Attending Provider [phone] Judy Edmondson Primary Care Unavailable Judy Edmondson Attending Unavailable Judy Edmondson Primary Care Unavailable Judy Edmondson Attending Unavailable Judy Edmondson Primary Care Unavailable Judy Edmondson Attending Unavailable Judy Edmondson Referring Unavailable Susannah Burgos NP Attending Unavailable Judy Edmondson Primary Care Unavailable Judy Edmondson Attending Unavailable Judy Edmondson Referring Unavailable Judy Edmondson Primary Care Unavailable Medications Current Medications Medication Drug Class(es) Dates Sig (Normalized) Sig (Original) famotidine 20 mg oral tablet (15 sources) Histamine-2 Receptor Antagonist Start: 02-06-2021 take 1 tablet by mouth twice daily Famotidine 20 mg tablet Active 20 mg PO TWICE A DAY 60 February 06, 2021 9:25am Start: 07-17-2020 End: 02-06-2021 take 1 tablet by mouth once daily Famotidine 20 MG tablet Discontinued 20 mg PO DAILY July 17, 2020 9:19pm February 06, 2021 9:27am Start: 09-11-2019 End: 07-17-2020 take 1 tablet by mouth twice daily Famotidine (Pepcid) 20 mg tablet Discontinued 20 mg PO TWICE A DAY 60 September 11, 2019 1:00am July 17, 2020 9:19pm lisinopril 2.5 mg oral tablet (2 sources) Angiotensin Converting Enzyme Inhibitor Start: 02-15-2023 take 1 tablet by mouth once daily Lisinopril 2.5 mg tablet Active 2.5 mg PO DAILY February 15, 2023 12:00am Vitamin D (5 sources) Start: 07-17-2020 take 1 tablet by mouth once daily Vitamin D Active 1 TABLET PO DAILY July 17, 2020 9:17pm Start: 07-17-2020 Vitamin D Acti ve 1 {tbl} PO DAILY July 17, 2020 1:00am Start: 07-17-2020 take 1 tablet by mouth once da juany Vitamin D Active 1 TABLET PO DAILY July 17, 2020 1:00am Completed/Discontinued Medications Medication Drug Class(es) Dates Sig (Normalized) Sig (Original) ascorbic acid 1000 mg oral tablet (5 sources) Vitamin C Start: 07-17-2020 End: 02-15-2023 take 1 tablet by mouth once daily Ascorbic Acid (Vitamin C) 1,000 MG tablet Discontinued 1000 mg PO DAILY July 17, 2020 1:00am February 15, 2023 2:18pm fluconazole 200 mg oral tablet (5 sources) Azole Antifungal Start: 07-27-2017 End: 03-25-2018 take 1 tablet by mouth every week Fluconazole 200 mg tablet Discontinued 200 mg PO .Weekly July 27, 2017 1:00am March 25, 2018 1:35pm ketoconazole 20 mg/ml medicated shampoo (20 sources) Azole Antifungal Start: 08-09-2018 End: 02-21-2019 Ketoconazole 2 % shampoo Discontinued 1 NMA TOPICAL every other day 120 August 09, 2018 2:37pm February 20, 2019 12:00am February 21, 2019 12:08am leave on for 15 minutes Start: 04-13-2018 End: 02-21-2019 Ketoconazole 2 % shampoo Dis continued 1 NMA TOPICAL every other day 120 May 30, 2018 4:10pm December 11, 2018 12:00am August 09, 2018 2:37pm leave on for 15 minutes Start: 11-17-2017 End: 01-12-2018 Ketoconazole (Nizoral) 2 % s hampoo Discontinued 1 NMA TOPICAL TWICE A WEEK 120 November 17, 2017 12:00am January 11, 2018 12:00am January 12, 2018 12:06am Start: 07-27-2017 End: 09-21-2017 Ketoconazole 2 % shampoo Dis continued 1 NMA TOPICAL TWICE A WEEK 120 July 27, 2017 1:00am September 20, 2017 12:00am September 21, 2017 12:06am omeprazole 40 mg delayed release oral capsule (20 sources) Proton Pump Inhibitor Start: 08-03-2019 End: 09-11-2019 take 1 capsule by mouth twice daily Omeprazole 40 mg capsule,delayed release(DR/EC) Discontinued 40 mg PO TWICE A DAY August 03, 2019 1:00am September 11, 2019 4:25pm Start: 08-01-2019 End: 08-03-2019 Omeprazole 40 MG capsule,del ayed release(DR/EC) Discontinued 0 mg PO DAILY August 01, 2019 1:00am August 03, 2019 4:14pm Start: 03-25-2018 End: 06-20-2019 take 1 capsule by mouth once daily Omeprazole 40 mg capsule,delayed release(DR/EC) Discontinued 40 mg PO DAILY November 02, 2018 3:22pm June 20, 2019 2:12pm Problems Problem Classification Problem Date Documented Date Episodic/Chronic Abdominal pain (10 sources) Epigastric pain; Translations: [Epigastric pain] 01-28-2021 Episodic Alcohol-related disorders (1 source) Alcoholic fatty liver; Translations: [Alcoholic fatty liver] Onset: 11-02-2024 Chronic Cataract (5 sources) Cataract; Translations: [Unspecified cataract] 08-07-2019 Chronic Esophageal disorders (5 sources) Gastroesophageal reflux disease; Translations: [Gastro-esophageal reflux disease without esophagitis] 06-20-2019 Chronic Essential hypertension (6 sources) Hypertensive disorder; Translations: [Essential (primary) hypertension] Onset: 04-16-2024 06-20-2019 Chronic Gastroduodenal ulcer (except hemorrhage) (5 sources) Gastric ulcer caused by bacterium; Translations: [Gastric ulcer, unspecified as acute or chronic, without hemorrhage or perforation] 09-11-2019 Chronic Glaucoma (5 sources) Glaucoma; Translations: [Unspecified glaucoma] 08-07-2019 Chronic Mycoses (5 sources) Tinea capitis; Translations: [Tinea barbae and tinea capitis] 06-20-2019 Episodic Other infections; including parasitic (5 sources) History of Helicobacter pylori infection; Translations: [Personal history of other infectious and parasitic diseases] 01-28-2021 Episodic Other nutritional; endocrine; and metabolic disorders (5 sources) Body mass index 30+ - obesity; Translations: [Body mass index (BMI) 31.0-31.9, adult] 07-22-2021 Chronic Other nutritional; endocrine; and metabolic disorders (4 sources) Body mass index (BMI) 31.0-31.9, adult; Translations: [Body Mass Index 31.0-31.9, adult] Chronic Other nutritional; endocrine; and metabolic disorders (1 source) Obesity; Translations: [Obesity, unspecified] 03-07-2024 Chronic Residual codes; unclassified (5 sources) Obstructive sleep apnea syndrome; Translations: [Obstructive sleep apnea (adult) (pediatric)] 11-25-2021 Chronic Residual codes; unclassified (5 sources) Daytime hypersomnia; Translations: [Hypersomnia, unspecified] 07-30-2021 Chronic Residual codes; unclassified (4 sources) Obstructive sleep apnea (adult) (pediatric); Translations: [Obstructive sleep apnea (adult)(pediatric)] Chronic Results Test Name Value Interpretation Reference Range Facility Liver Profileon 10-30-2024 Albumin [Mass/Vol] 4.4 g/dL Normal 3.5-5.0 [facility] Comment on above: Performed By: #### L 500.3400 #### [facility] [address] [place], [place], [id number] ALK PHOS 68 U/L Normal 40-129 [facility] Comment on above: Performed By: #### L 500.3400 #### [facility] [address] [place], [address] ALT [Catalytic activity/Vol] 125 U/L High <=46 [facility] Comment on above: Performed By: #### L 500.3400 #### [facility] [address] [place], [address] AST [Catalytic activity/Vol] 49 U/L High <=37 [facility] Comment on above: Performed By: #### L 500.3400 #### [facility] [address] [place], [address] Bilirubin [Mass/Vol] 0.35 mg/dL Normal 0.00-1.30 [facility] Comment on above: Performed By: #### L 500.3400 #### [facility] [address] [place], [address] Bilirubin.direct [Mass/Vol] 0.16 mg/dL Normal 0.00-0.30 [facility] Comment on above: Performed By: #### L 500.3400 #### [facility] [address] [place], [address] Globulin (S) [Mass/Vol] 3.6 g/dL Normal 2.2-4.2 [facility] Comment on above: Performed By: #### L [id number] #### [facility] [address] [place], [address] T PROT 8.1 g/dL Normal 5.9-8.4 [facility] Comment on above: Performed By: #### L 500.3400 #### [facility] [address] [place], [address] Albumin DL <= 20 mg/L (U) [M ass/Vol]Ordered By: Judy Edmondson on 10-03-2024 Urine Random Microalbumin < 12.0 mg/L NO RANGE EST. [facility] Anion gap in Serum or Plasma Ordered By: Judy Edmondson on 10-03-2024 Anion gap [Moles/Vol] 14 mmol/L 5-[address] [facility] BUN/creatinine ratioOrdered By: Judy Edmondson on 10-03-2024 Urea nitrogen/Creatinine [Mass ratio] 12.2 mg/mg 10- [facility] Bilirubin, totalOrdered By: Judy Edmondson on 10-03-2024 Bilirubin [Mass/Vol] 0.48 mg/dL 0.00-1.30 [facility] CBC-Complete Blood Cnt No Di ffon 10-03-2024 Erythrocyte distribution width (RBC) [Ratio] 12.8 % Normal 11.6-14.6 [facility] Comment on above: Performed By: #### L 501.9985, L500.4100, L500.4050, L100.0500, L502.0250 #### [facility] [address] [place], [address] Hematocrit (Bld) [Volume fraction] 44.5 % Normal 40-54 [facility] Comment on above: Performed By: #### L [id number], L500.4100, L500.4050, L100.0500, L502.0250 #### [facility] [address] [place], [address] Hemoglobin (Bld) [Mass/Vol] 15.2 g/dL Normal 13.0-16.5 [facility] Comment on above: Performed By: #### L [id number], L500.4100, L500.4050, L100.0500, L502.0250 #### [facility] [address] [place], [address] MCH (RBC) [Entitic mass] 29.5 pg Normal 27.0-32.0 [facility] Comment on above: Performed By: #### L [id number], L500.4100, L500.4050, L100.0500, L502.0250 #### [facility] [address] [place], [address] MCHC (RBC) [Mass/Vol] 34.2 g/dL Normal 32-[address] [facility] Comment on above: Performed By: #### L [id number], L500.4100, L500.4050, L100.0500, L502.0250 #### [facility] [address] [place], [address] MCV (RBC) [Entitic vol] 86.4 fL Normal 80-94 [facility] Comment on above: Performed By: #### L [id number], L500.4100, L500.4050, L100.0500, L502.0250 #### [facility] [address] [place], [address] Platelet mean volume (Bld) [Entitic vol] 11.1 fL Normal 6.2-12.0 [facility] Comment on above: Performed By: #### L [id number], L500.4100, L500.4050, L100.0500, L502.0250 #### [facility] [address] [place], [address] Platelets (Bld) [#/Vol] 265 10*3/uL Normal 150-450 [facility] Comment on above: Performed By: #### L [id number], L500.4100, L500.4050, L100.0500, L502.0250 #### [facility] [address] [place], [address] RBC (Bld) [#/Vol] 5.15 10*6/uL Normal 4.6-6.2 [facility] Comment on above: Performed By: #### L [id number], L500.4100, L500.4050, L100.0500, L502.0250 #### [facility] [address] [place], [address] RDW SD 40.3 fl Normal 35.1-43.9 [facility] Comment on above: Performed By: #### L 501.9985, L500.4100, L500.4050, L100.0500, L502.0250 #### [facility] [address] [place], [address] WBC (Bld) [#/Vol] 6.3 10*3/uL Normal 4.4-11.0 [facility] Comment on above: Performed By: #### L 501.9985, L500.4100, L500.4050, L100.0500, L502.0250 #### [facility] [address] [place], [address] Calculated very low density lipoprotein (VLDL) cholesterol measurementOrdered By: Judy Edmondson on 10-03-2024 VLDL Cholesterol 33 mg/dL 5-40 [facility] Carbon dioxide, total [Moles /volume] in Central venous bloodOrdered By: Judy Edmondson on 10-03-2024 CO2 [Moles/Vol] 21.8 mmol/L 21.0-32.0 [facility] Chloride assayOrdered By: Axel Edmondson on 10-03-2024 Chloride [Moles/Vol] 99 mmol/L 98-108 [facility] Comprehensive Metabolic Prof ilon 10-03-2024 Albumin [Mass/Vol] 4.4 g/dL Normal 3.5-5.0 [facility] Comment on above: Performed By: #### L 501.9985, L500.4100, L500.4050, L100.0500, L502.0250 #### [facility] [address] [place], [address] Albumin/Globulin [Mass ratio] 1.2 {ratio} Normal 0.9-2.4 [facility] Comment on above: Performed By: #### L 501.9985, L500.4100, L500.4050, L100.0500, L502.0250 #### [facility] [address] [place], [address] ALK PHOS 71 U/L Normal 40-129 [facility] Comment on above: Performed By: #### L 501.9985, L500.4100, L500.4050, L100.0500, L502.0250 #### [facility] [address] [place], [address] ALT [Catalytic activity/Vol] 132 U/L High <=46 [facility] Comment on above: Performed By: #### L 501.9985, L500.4100, L500.4050, L100.0500, L502.0250 #### [facility] [address] [place], [address] AST [Catalytic activity/Vol] 61 U/L High <=37 [facility] Comment on above: Performed By: #### L [id number], L500.4100, L500.4050, L100.0500, L502.0250 #### [facility] [address] [place], [address] Bilirubin [Mass/Vol] 0.48 mg/dL Normal 0.00-1.30 [facility] Comment on above: Performed By: #### L 501.9985, L500.4100, L500.4050, L100.0500, L502.0250 #### [facility] [address] [place], [address] BUN/CRE 12.2 RATIO Normal 10-20 [facility] Comment on above: Performed By: #### L 501.9985, L500.4100, L500.4050, L100.0500, L502.0250 #### [facility] [address] [place], [address] Calcium [Mass/Vol] 9.5 mg/dL Normal 7.6-11.0 [facility] Comment on above: Performed By: #### L 501.9985, L500.4100, L500.4050, L100.0500, L502.0250 #### [facility] [address] [place], [address] Chloride [Moles/Vol] 99 mmol/L Normal 98-108 [facility] Comment on above: Performed By: #### L 501.9985, L500.4100, L500.4050, L100.0500, L502.0250 #### [facility] [address] [place], [address] CO2 [Moles/Vol] 21.8 mmol/L Normal 21.0-32.0 [facility] Comment on above: Performed By: #### L 501.9985, L500.4100, L500.4050, L100.0500, L502.0250 #### [facility] [address] [place], [address] Creatinine [Mass/Vol] 0.79 mg/dL Normal 0.70-1.[address] [facility] Comment on above: Performed By: #### L 501.9985, L500.4100, L500.4050, L100.0500, L502.0250 #### [facility] [address] [place], [address] GAP 14 Normal 5-15 [facility] Comment on above: Performed By: #### L 501.9985, L500.4100, L500.4050, L100.0500, L502.0250 #### [facility] [address] [place], [address] GFR/1.73 sq M.predicted among non-blacks MDRD (S/P/Bld) [Vol rate/Area] 110 mL/min/{1.73_m2} Normal >60 [facility] Comment on above: Result Comment: mL/m in/1.73m2 CKD-EPI Creatinine Equation (2020) Performed By: #### L 501.9985, L500.4100, L500.4050, L100.0500, L502.0250 #### [facility] [address] [place], [address] Globulin (S) [Mass/Vol] 3.7 g/dL Normal 2.2-4.2 [facility] Comment on above: Performed By: #### L 501.9985, L500.4100, L500.4050, L100.0500, L502.0250 #### [facility] [address] [place], [address] Glucose [Mass/Vol] 182 mg/dL High 70-99 [facility] Comment on above: Performed By: #### L 501.9985, L500.4100, L500.4050, L100.0500, L502.0250 #### [facility] [address] [place], [address] Potassium [Moles/Vol] 3.9 mmol/L Normal 3.3-5.[address] [facility] Comment on above: Performed By: #### L 501.9985, L500.4100, L500.4050, L100.0500, L502.0250 #### [facility] [address] [place], [address] Sodium [Moles/Vol] 135 mmol/L Normal 133-145 [facility] Comment on above: Performed By: #### L 501.9985, L500.4100, L500.4050, L100.0500, L502.0250 #### [facility] [address] [place], [address] T PROT 8.1 g/dL Normal 5.9-8.4 [facility] Comment on above: Performed By: #### L 501.9985, L500.4100, L500.4050, L100.0500, L502.0250 #### [facility] [address] [place], [address] Urea nitrogen [Mass/Vol] 10 mg/dL Normal 4-19 [facility] Comment on above: Performed By: #### L 501.9985, L500.4100, L500.4050, L100.0500, L502.0250 #### [facility] [address] [place], [address] Creatinine Unsp time (U) [Ma ss/Vol]Ordered By: Judy Edmondson on 10-03-2024 Creatinine (U) [Mass/Vol] 27.60 mg/dL Low 39.00-259.00 [facility] Erythrocyte distribution wid th ratioOrdered By: Judy Edmondson on 10-03-2024 Erythrocyte distribution width (RBC) [Ratio] 12.8 % 11.6-14.6 [facility] Erythrocyte distribution wid th standard deviationOrdered By: Judy Edmondson on 10-03-2024 Erythrocyte distribution width (RBC) [Entitic vol] 40.3 fL 35.1-43.9 [facility] GFR/1.73 sq M.predicted sofia g non-blacks MDRD (S/P/Bld) [Vol rate/Area]Ordered By: Judy Edmondson on 10-03-2024 Estimated GFR (MDRD) Non-Af Amer 110 >60 [facility] Comment on above: mL/min/1.73m2 CKD-EP I Creatinine Equation (2020) Hematocrit Auto (Bld) [Volum e fraction]Ordered By: Judy Edmondson on 10-03-2024 Hematocrit (Bld) [Volume fraction] 44.5 % 40-54 [facility] Hemoglobin A1con 10-03-2024 HbA1c (Bld) [Mass fraction] 8.5 % Normal <=5.6 [facility] Comment on above: Performed By: #### L 501.9985, L500.4100, L500.4050, L100.0500, L502.0250 #### [facility] [address] [place], [address] Hemoglobin A1c percentageOrd ered By: Judy Edmondson on 10-03-2024 HbA1c (Bld) [Mass fraction] 8.5 % >5.7 [facility] Hemoglobin measurementOrdere d By: Judy Edmondson on 10-03-2024 Hemoglobin (Bld) [Mass/Vol] 15.2 g/dL 13.0-16.5 [facility] LDL calc ser/plasOrdered By: Judy Edmondson on 10-03-2024 LDL Cholesterol, Calculated 121 mg/dL [facility] Comment on above: Icitnrnleu=688-448 m g/dL & Higher Ybwx=775 mg/dL or greater Laboratory - Chemistry and C hemistry - challengeOrdered By: Judy Edmondson on 10-03-2024 AST [Catalytic activity/Vol] 61 U/L High <38 [facility] Lipid Profileon 10-03-2024 CHOL:HDL 4.10 Normal [facility] Comment on above: Performed By: #### L 501.9985, L500.4100, L500.4050, L100.0500, L502.0250 #### [facility] [address] [place], [address] Cholesterol [Mass/Vol] 204 mg/dL High <=200 [facility] Comment on above: Result Comment: Chol esterol level, Desirable <200 mg/dL Borderline high cholesterol 200-239 mg/dL High cholesterol >=240 mg/dL Recommendations of the NCEP Adult Treatment Panel for the following risk-cutoff thresholds for the [place] population. Performed By: #### L 501.9985, L500.4100, L500.4050, L100.0500, L502.0250 #### [facility] [address] [place], [address] Cholesterol in HDL [Mass/Vol] 50 mg/dL Normal [facility] Comment on above: Result Comment: Tari onal Cholesterol Education Program (NCEP) guidelines: <40 mg/dL: Low HDL-cholesterol (major risk factor for CHD) >= 60 mg/dL: High HDL-cholesterol (negative risk factor for CHD) HDL-cholesterol is affected by a number of factors, e.g. smoking, exercise, hormones, sex and age. Performed By: #### L 501.9985, L500.4100, L500.4050, L100.0500, L502.0250 #### [facility] [address] [place], [address] Cholesterol in LDL [Mass/Vol] 121 mg/dL Normal [facility] Comment on above: Result Comment: Bord zyksay=351-389 mg/dL Higher Pnwf=203 mg/dL or greater Performed By: #### L 501.9985, L500.4100, L500.4050, L100.0500, L502.0250 #### [facility] [address] [place], [address] Cholesterol in VLDL [Mass/Vol] 33 mg/dL Normal 5-40 [facility] Comment on above: Performed By: #### L 501.9985, L500.4100, L500.4050, L100.0500, L502.0250 #### [facility] [address] [place], [address] Triglyceride [Mass/Vol] 165 mg/dL Normal [facility] Comment on above: Result Comment: The drugs N-Acetylcysteine and Metamizole may falsely depress this assay. Normal range: <150 mg/dL Borderline High: 150-199 mg/dL High: 200-499 mg/dL Very High: >500 mg/dL Performed By: #### L 501.9985, L500.4100, L500.4050, L100.0500, L502.0250 #### [facility] [address] [place], [address] MCV (mean corpuscular volume ) determinationOrdered By: Judy Edmondson on 10-03-2024 MCV (RBC) [Entitic vol] 86.4 fL 80-94 [facility] Mean corpuscular hemoglobin (MCH) determinationOrdered By: Judy Edmondson on 10-03-2024 MCH (RBC) [Entitic mass] 29.5 pg 27.0-32.0 [facility] Mean corpuscular hemoglobin concentration (MCHC) determinationOrdered By: Judy Edmondson on 10-03-2024 MCHC (RBC) [Mass/Vol] 34.2 g/dL 32-[address] [facility] Mean platelet volume determi nationOrdered By: Judy Edmondson on 10-03-2024 Platelet mean volume (Bld) [Entitic vol] 11.1 fL 6.2-12.0 [facility] Microalb:Creat Ratio,Random URon 10-03-2024 Creatinine [Mass/Vol] 27.60 mg/dL Low 39.00-259.00 [facility] Comment on above: Performed By: #### L 501.9985, L500.4100, L500.4050, L100.0500, L502.0250 #### [facility] [address] [place], [address] MALB:CREAT UNABLE TO CALCULATE Normal [facility] Comment on above: Performed By: #### L 501.9985, L500.4100, L500.4050, L100.0500, L502.0250 #### [facility] [address] [place], [address] MICROALBUMIN,UR < 12.0 Normal NO RANGE EST. [facility] Comment on above: Performed By: #### L 501.9985, L500.4100, L500.4050, L100.0500, L502.0250 #### [facility] [address] [place], [address] Microalbumin/creat ratio urO rdered By: Judy Edmondson on 10-03-2024 Urine Microalbumin/Creatinine Ratio UNABLE TO CALCULATE mg/g CRE [facility] Platelet countOrdered By: Axel Edmondson on 10-03-2024 Platelets (Bld) [#/Vol] 265 10*3/uL 150-450 [facility] Potassium (Unsp spec) [Mass/ Vol]Ordered By: Judy Edmondson on 10-03-2024 Potassium [Moles/Vol] 3.9 mmol/L 3.3-5.[address] [facility] RBC Auto (Bld) [#/Vol]Ordere d By: Judy Edmondson on 10-03-2024 RBC (Bld) [#/Vol] 5.15 10*6/uL 4.6-6.2 [facility] Screening total cholesterol/ high density lipoprotein (HDL) cholesterol ratioOrdered By: Judy Edmondson on 10-03-2024 Cholesterol.total/Choles terol in HDL [Mass ratio] 4.10 {ratio} [facility] Serum creatinine measurement (mass/volume)Ordered By: Judy Edmondson on 10-03-2024 Creatinine [Mass/Vol] 0.79 mg/dL 0.70-1.[address] [facility] Serum globulin measurementOr dered By: Judy Edmondson on 10-03-2024 Globulin (S) [Mass/Vol] 3.7 g/dL 2.2-4.2 [facility] Serum glucose measurement (m ass/volume)Ordered By: Judy Edmondson on 10-03-2024 Glucose [Mass/Vol] 182 mg/dL High 70-99 [facility] Serum or plasma alanine merrill otransferase (ALT) measurementOrdered By: Judy Edmondson on 10-03-2024 ALT [Catalytic activity/Vol] 132 U/L High <47 [facility] Serum or plasma albumin smita urement (mass/volume)Ordered By: Judy Edmondson on 10-03-2024 Albumin [Mass/Vol] 4.4 g/dL 3.5-5.0 [facility] Serum or plasma albumin/glob ulin mass ratioOrdered By: Judy Edmondson on 10-03-2024 Albumin/Globulin [Mass ratio] 1.2 {ratio} 0.9-2.4 [facility] Serum or plasma alkaline josie sphatase measurementOrdered By: Judy Edmondson on 10-03-2024 ALP [Catalytic activity/Vol] 71 U/L 40-129 [facility] Serum or plasma calcium smita urement (mass/volume)Ordered By: Judy Edmondson on 10-03-2024 Calcium [Mass/Vol] 9.5 mg/dL 7.6-11.0 [facility] Serum or plasma cholesterol in HDL measurement (mass/volume)Ordered By: Judy Edmondson on 10-03-2024 Cholesterol in HDL [Mass/Vol] 50 mg/dL >40 [facility] Comment on above: National Cholesterol Education Program (NCEP) guidelines:<40 mg/dL: Low HDL-cholesterol (major risk factor for CHD)>= 60 mg/dL: High HDL-cholesterol (negative risk factor for CHD)HDL-cholesterol is affected by a number of factors, e.g. smoking, exercise, hormones, sex and age. Serum or plasma cholesterol measurement (mass/volume)Ordered By: Judy Edmondson on 10-03-2024 Cholesterol [Mass/Vol] 204 mg/dL High <201 [facility] Comment on above: Cholesterol level, D esirable <200 mg/dLBorderline high cholesterol 200-239 mg/dLHigh cholesterol >=240 mg/dLRecommendations of the NCEP Adult Treatment Panel for the following risk-cutoff thresholds for the [place] population. Serum or plasma urea nitroge n measurement (mass/volume)Ordered By: Judy Edmondson on 10-03-2024 Urea nitrogen [Mass/Vol] 10 mg/dL 4-19 [facility] Sodium levelOrdered By: Noam Edmondson on 10-03-2024 Sodium [Moles/Vol] 135 mmol/L 133-145 [facility] Total proteinOrdered By: Delbert Edmondson on 10-03-2024 Protein [Mass/Vol] 8.1 g/dL 5.9-8.4 [facility] Triglycerides measurementOrd ered By: Judy Edmondson on 10-03-2024 Triglyceride [Mass/Vol] 165 mg/dL <199 [facility] Comment on above: The drugs N-Acetylcy steine and Metamizole may falsely depress this assay. Normal range: <150 mg/dLBorderline High: 150-199 mg/dLHigh: 200-499 mg/dLVery High: >500 mg/dL White blood cell (WBC) count Ordered By: Judy Edmondson on 10-03-2024 WBC (Bld) [#/Vol] 6.3 10*3/uL 4.4-11.0 [facility] CBC W/Diff, Automatedon - Absolute Lymph 2.31 X10 3/uL Normal 0.83-4.51 [facility] Comment on above: Performed By: #### L 500.4050, L100.0100 #### [facility] [address] [place], [address] Absolute Neut 2.8 X10 3/uL Normal 2.0-7.7 [facility] Comment on above: Performed By: #### L 500.4050, L100.0100 #### [facility] [address] [place], [address] Basophils/100 WBC (Bld) 0.7 % Normal 0-1 [facility] Comment on above: Performed By: #### L 500.4050, L100.0100 #### [facility] [address] [place], [address] Eosinophils/100 WBC (Bld) 1.4 % Normal 0-5 [facility] Comment on above: Performed By: #### L 500.4050, L100.0100 #### [facility] [address] [place], [address] Erythrocyte distribution width (RBC) [Ratio] 12.6 % Normal 11.6-14.6 [facility] Comment on above: Performed By: #### L 500.4050, L100.0100 #### [facility] [address] [place], [address] Hematocrit (Bld) [Volume fraction] 43.7 % Normal 40-54 [facility] Comment on above: Performed By: #### L 500.4050, L100.0100 #### [facility] [address] [place], [address] Hemoglobin (Bld) [Mass/Vol] 14.2 g/dL Normal 13.0-16.5 [facility] Comment on above: Performed By: #### L 500.4050, L100.0100 #### [facility] [address] [place], [address] IG% 0.400 Normal 0.0-0.9 [facility] Comment on above: Result Comment: IG% - Immature Granulocytes (promyelocytes, myelocytes and metamyelocytes) > 1% indicates that a LEFT SHIFT is Present. Performed By: #### L 500.4050, L100.0100 #### [facility] [address] [place], [address] Lymphocytes/100 WBC (Bld) 40.5 % Normal 19-41 [facility] Comment on above: Performed By: #### L 500.4050, L100.0100 #### [facility] [address] [place], [address] MCH (RBC) [Entitic mass] 28.0 pg Normal 27.0-32.0 [facility] Comment on above: Performed By: #### L 500.4050, L100.0100 #### [facility] [address] [place], [address] MCHC (RBC) [Mass/Vol] 32.5 g/dL Normal 32-[address] [facility] Comment on above: Performed By: #### L 500.4050, L100.0100 #### [facility] [address] [place], [address] MCV (RBC) [Entitic vol] 86.0 fL Normal 80-94 [facility] Comment on above: Performed By: #### L 500.4050, L100.0100 #### [facility] [address] [place], [address] Monocytes/100 WBC (Bld) 8.9 % Normal 0-10 [facility] Comment on above: Performed By: #### L 500.4050, L100.0100 #### [facility] [address] [place], [address] Neutrophils/100 WBC (Bld) 48.1 % Normal 47-70 [facility] Comment on above: Performed By: #### L 500.4050, L100.0100 #### [facility] [address] [place], [address] Nucleated RBC (Bld) [#/Vol] 0 10*3/uL Normal 0-5 [facility] Comment on above: Performed By: #### L 500.4050, L100.0100 #### [facility] [address] [place], [address] Platelet mean volume (Bld) [Entitic vol] 11.0 fL Normal 6.2-12.0 [facility] Comment on above: Performed By: #### L 500.4050, L100.0100 #### [facility] [address] [place], [address] Platelets (Bld) [#/Vol] 243 10*3/uL Normal 150-450 [facility] Comment on above: Performed By: #### L 500.4050, L100.0100 #### [facility] [address] [place], [address] RBC (Bld) [#/Vol] 5.08 10*6/uL Normal 4.6-6.2 [facility] Comment on above: Performed By: #### L 500.4050, L100.0100 #### [facility] [address] [place], [address] RDW SD 39.7 fl Normal 35.1-43.9 [facility] Comment on above: Performed By: #### L 500.4050, L100.0100 #### [facility] [address] [place], [address] WBC (Bld) [#/Vol] 5.7 10*3/uL Normal 4.4-11.0 [facility] Comment on above: Performed By: #### L 500.4050, L100.0100 #### [facility] [address] [place], [address] Comprehensive Metabolic Prof ilon 03-24-2024 Albumin [Mass/Vol] 3.8 g/dL Normal 3.2-5.0 [facility] Comment on above: Performed By: #### L 500.4050, L100.0100 #### [facility] [address] [place], [address] Albumin/Globulin [Mass ratio] 0.9 {ratio} Normal 0.9-2.4 [facility] Comment on above: Performed By: #### L 500.4050, L100.0100 #### [facility] [address] [place], [address] ALK P 62 U/L Normal 45-117 [facility] Comment on above: Performed By: #### L 500.4050, L100.0100 #### [facility] [address] [place], [address] ALT [Catalytic activity/Vol] 48 U/L Normal 16-61 [facility] Comment on above: Performed By: #### L 500.4050, L100.0100 #### [facility] [address] [place], [address] AST [Catalytic activity/Vol] 31 U/L Normal 15-37 [facility] Comment on above: Performed By: #### L 500.4050, L100.0100 #### [facility] [address] [place], [address] Bilirubin [Mass/Vol] 0.60 mg/dL Normal 0.20-1.00 [facility] Comment on above: Result Comment: For patients on eltrombopag therapy, use of Dimension Eva TBIL is not recommended. Performed By: #### L 500.4050, L100.0100 #### [facility] [address] [place], [address] BUN/CRE 12.2 RATIO Normal 10-20 [facility] Comment on above: Performed By: #### L 500.4050, L100.0100 #### [facility] [address] [place], [address] CA,Total 9.5 mg/dL Normal 8.5-10.1 [facility] Comment on above: Performed By: #### L 500.4050, L100.0100 #### [facility] [address] [place], [address] Chloride [Moles/Vol] 101 mmol/L Normal 98-107 [facility] Comment on above: Performed By: #### L 500.4050, L100.0100 #### [facility] [address] [place], [address] CO2 [Moles/Vol] 28.0 mmol/L Normal 21.0-32.0 [facility] Comment on above: Performed By: #### L 500.4050, L100.0100 #### [facility] [address] [place], [address] Creatinine [Mass/Vol] 0.90 mg/dL Normal 0.70-1.[address] [facility] Comment on above: Result Comment: The validity of the calculated GFR GFRAA in patients over 70 years has not been determined. Clinical correlation is essential. Performed By: #### L 500.4050, L100.0100 #### [facility] [address] [place], [address] EST GFR - AA 115 mL/min Normal >60 [facility] Comment on above: Result Comment: Afri can [place] GFR Calc Performed By: #### L 500.4050, L100.0100 #### [facility] [address] [place], [address] GAP 6 Normal 5-15 [facility] Comment on above: Performed By: #### L 500.4050, L100.0100 #### [facility] [address] [place], [address] GFR/1.73 sq M.predicted among non-blacks MDRD (S/P/Bld) [Vol rate/Area] 95 mL/min/{1.73_m2} Normal >60 [facility] Comment on above: Result Comment: Non- GFR Calc Performed By: #### L 500.4050, L100.0100 #### [facility] [address] [place], [address] Globulin (S) [Mass/Vol] 4.3 g/dL High 2.2-4.2 [facility] Comment on above: Performed By: #### L 500.4050, L100.0100 #### [facility] [address] [place], [address] Glucose [Mass/Vol] 128 mg/dL High 74-106 [facility] Comment on above: Result Comment: Fast ing Glucose result greater than or equal to 126 mg/dL suggests DIABETES MELLITUS per A.D.A. criteria. Performed By: #### L 500.4050, L100.0100 #### [facility] [address] [place], [address] Potassium [Moles/Vol] 3.9 mmol/L Normal 3.5-5.[address] [facility] Comment on above: Performed By: #### L 500.4050, L100.0100 #### [facility] [address] [place], [address] Sodium [Moles/Vol] 135 mmol/L Low 136-145 [facility] Comment on above: Performed By: #### L 500.4050, L100.0100 #### [facility] [address] [place], [address] T PROT 8.1 g/dL Normal 6.4-8.2 [facility] Comment on above: Performed By: #### L 500.4050, L100.0100 #### [facility] [address] [place], [address] Urea nitrogen [Mass/Vol] 11 mg/dL Normal 7-18 [facility] Comment on above: Performed By: #### L 500.4050, L100.0100 #### [facility] [address] [place], [address] Pulmonary Visit Reporton Pulmonary Visit Report [facility] [place] [address] [place] [address] OFFICE VISIT Date of Service: 03/06/24 MR#: [id number] Acct: [id number] Name: ZACH CAPPSOO Rep #: [id number] : 1975 Provider: ANNA MARIE Burgos Age/Sex: 48/M [place] [facility] Status: Signed Assessment and Plan Assessment and Plan (1) YA (obstructive sleep apnea): Status: Chronic Plan: He is using and benefiting from Pap therapy. I have encouraged him to try to achieve 7 or 8 hours of sleep at night with his PAP device on. He conveys understanding. No indication for titration study at this time. Contact the office for any new or worsening symptoms in the meantime. Follow-up in 1 year. (2) Obesity: Status: Chronic Qualifiers: Obesity type: due to excess calories Obesity classification: adult class 1 (BMI 30 - 34.9) Serious obesity comorbidity presence: with serious comorbidity Body mass index: BMI 31.0-31.9 Qualified Code(s): E66.09 - Other obesity due to excess calories; Z68.31 - Body mass index [BMI] 31.0-31.9, adult Plan: Complicates exam, plan, care and prognosis. We discussed relationship between obesity and obstructive sleep apnea. The patient is interested in some weight loss. Plan Details Follow Up: 1 Year ([facility]) HPI 1 Y FU Chief Complaint: Routine follow-up HPI Comments Details: This patient presents to the office today for follow-up of his obstructive sleep apnea. He is ambulatory and currently on room air. He has not been seen in the ED or urgent care for any respiratory illness since his last office visit. He is not required any antibiotics or prednisone for any breathing problems. He denies any difficulty with shortness of breath. He is not had any wheezing, chest tightness, chest pain or palpitations. He also denies any fever, chills or body aches. He denies any cough, sputum production or hemoptysis. The patient reports only receiving about 6 hours per night of sleep. He does occasionally have a headache in the morning. He is not having difficulty with dry mouth. He does not feel rested if he is able to use his PAP device for at least 7 hours per night. He denies excessive nocturia. He does occasionally nap for 10 or 15 minutes. He is not nodding off to sleep unintentionally. Compliance report for the past 30 days shows 100% compliance with an average use of 6 hours and 3 minutes per night. Current setting is AutoPap 7 to 12 cm of water pressure typically being utilized at 10.9 to 12 cm of water. Residual AHI 5.3 events per hour. Leaks do not appear to be problematic. Intake Vital Signs 02/15/23 07:11 03/06/24 09:03 Height 5 ft 7 in 5 ft 7 in Weight: 198 lb BMI 31.0 BP 133/86 H Blood Pressure Location Lt brachial Position Sitting Respiration 18 Pulse 94 Pulse Source Monitor Temp 97.1 F L Temperature Source Temporal Artery Pulse Oximetry (%) 96 Oxygen Delivery Method room air Intake Visit Reasons: 1 Y FU Chief Complaint: Follow-up on new Pap device [employer] Required: No DME Vendor: pap- [employer] Accompanied by: Self Is patient in pain?: No Allergies No Known Allergies Allergy (Verified 03/06/24 14:55) Medications ???Medication ???Instructions ???Recorded ???Confirmed ???Type Vitamin D 1 tab PO DAILY 07/17/20 03/06/24 History famotidine 20 mg tablet 20 mg PO BID #60 tabs 02/06/21 03/06/24 Rx lisinopril 2.5 mg tablet 2.5 mg PO DAILY 02/15/23 03/06/24 History PFSH Medical History (Reviewed 03/06/24 @ 15:07 by Susannah Burgos [employer], [employer]IPMENT [employer]ER-C) History of Helicobacter pylori infection Gastric ulcer due to bacteria GERD (gastroesophageal reflux disease) Hypertension Cataract Glaucoma Abdominal pain Tinea capitis Surgical History History of appendectomy Family History Grandfather Colon cancer Social History Smoking Status: Former smoker quit date: 08/12/15 pack-years: 10 alcohol intake: current substance use type: does not use what type of physical activity do you participate in: none Review of Systems Resp Respiratory: Yes as per HPI Exam Const Constitutional: Positive conversant, cooperative, in no acute respiratory distress, healthy appearing, well developed, well nourished, good hygiene and obese Head Head: Yes normocephalic, Yes atraumatic and No cyanosis of lips/distal nose Eyes Eye: Positive clear conjunctiva; Negative nystagmus Ears Ear: Positive hearing normal and external ears normal Nose Nose: Yes external nose normal Mouth Mouth: Positive oral mucosae normal Neck Neck: Positive normal visual inspection, full ROM and trachea midline Chest Wall Chest (more content not included)... Normal [facility] Absolute lymphocyte countOrd ered By: Judy Edmondson on 09-23-2023 Lymphocytes Auto (Unsp spec) [#/Vol] 2.30 10*3/uL 0.83-4.51 [facility] Automated lymphocyte count a s percentage of total leukocytesOrdered By: Judy Edmondson on 09-23-2023 Lymphocytes/100 WBC Auto (Unsp spec) 37.2 % 19-41 [facility] Basophil percentageOrdered B y: Judy Edmondson on 09-23-2023 Basophils/100 WBC (Bld) 1.1 % 0-1 [facility] Bilirubin [Mass/Vol] 0.80 mg/dL 0.20-1.00 [facility] Comment on above: For patients on eltr ombopag therapy, use of Dimension Eva TBIL is not recommended. Chloride [Moles/Vol] 98 mmol/L 98-107 [facility] Cholesterol [Mass/Vol] 221 mg/dL <200 [facility] Comment on above: <200 mg/dL Desirable 200-240 mg/dL Borderline >240 mg/dL High Risk Eosinophils/100 WBC (Bld) 2.1 % 0-5 [facility] Glucose [Mass/Vol] 128 mg/dL 74-106 [facility] Comment on above: Fasting Glucose resu lt greater than or equal to 126 mg/dL suggests DIABETES MELLITUS per A.D.A. criteria. Hemoglobin (Bld) [Mass/Vol] 15.3 g/dL 13.0-16.5 [facility] Monocytes/100 WBC (Bld) 8.9 % 0-10 [facility] Neutrophils (Bld) [#/Vol] 3.1 10*3/uL 2.0-7.7 [facility] Neutrophils/100 WBC (Bld) 50.4 % 47-70 [facility] Potassium [Moles/Vol] 3.8 mmol/L 3.5-5.[address] [facility] Protein [Mass/Vol] 8.4 g/dL 6.4-8.2 [facility] Sodium [Moles/Vol] 133 mmol/L 136-145 [facility] Triglyceride [Mass/Vol] 240 mg/dL <199 [facility] Comment on above: The drugs N-Acetylcy steine and Metamizole may falsely depress this assay.Serum Triglycerides Reference Interval Normal <150 mg/dL Borderline high 150 - 199 mg/dL High 200 - 499 mg/dL Very High > or = 500 mg/dL WBC (Bld) [#/Vol] 6.2 10*3/uL 4.4-11.0 [facility] Determination of erythrocyte mean corpuscular volume (MCV)Ordered By: Judy Edmondson on 09-23-2023 MCV (RBC) [Entitic vol] 85.1 fL 80-94 [facility] Erythrocyte distribution wid th ratioOrdered By: Judy Delvis on 09-23-2023 Erythrocyte distribution width (RBC) [Ratio] 12.3 % 11.6-14.6 [facility] Erythrocyte distribution wid th standard deviationOrdered By: [facility] on [facility]23 Erythrocyte distribution width (RBC) [Entitic vol] 38.3 fL 35.1-43.9 [facility] Hematocrit Auto (Bld) [Volum e fraction]Ordered By: Denton Delvis on 09-23-2023 Hematocrit (Bld) [Volume fraction] 46.8 % 40-54 [facility] Immature granulocytes/100 WB C Auto (Bld)Ordered By: Judy Delvis on 09-23-2023 Immature granulocytes/100 WBC (Bld) 0.300 % 0.0-0.9 [facility] Comment on above: IG% - Immature Granu locytes (promyelocytes, myelocytes and metamyelocytes) > 1% indicates that a LEFT SHIFT is Present. Laboratory - Chemistry and C hemistry - challengeOrdered By: [facility] on 09-23-2023 Albumin/Globulin [Mass ratio] 0.9 {ratio} 0.9-2.4 [facility] ALP [Catalytic activity/Vol] 60 U/L 45-117 [facility] ALT [Catalytic activity/Vol] 78 U/L 16-61 [facility] Cholesterol in HDL [Mass/Vol] 43 mg/dL >40 [facility] Comment on above: The drugs N-Acetylcy steine and Metamizole may falsely depress this assay. Reference Range HDL <40 mg/dL Low HDL Cholesterol HDL >or= 60 mg/dL High HDL Cholesterol Cholesterol in LDL [Mass/Vol] 130 mg/dL 0-130 [facility] CO2 [Moles/Vol] 26.0 mmol/L 21.0-32.0 [facility] Globulin (S) [Mass/Vol] 4.4 g/dL 2.2-4.2 [facility] Urea nitrogen/Creatinine [Mass ratio] 11.0 mg/mg 10-20 [facility] - Hematology and Cell countsOrdered By: Denton Delvis on 09-23-2023 MCH (RBC) [Entitic mass] 27.8 pg 27.0-32.0 [facility] MCHC (RBC) [Mass/Vol] 32.7 g/dL 32-[address] [facility] Nucleated RBC/100 WBC (Bld) [Ratio] 0 % 0-5 [facility] Platelet mean volume (Bld) [Entitic vol] 10.7 fL 6.2-12.0 [facility] Platelets (Bld) [#/Vol] 264 10*3/uL 150-450 [facility] No Panel InformationOrdered By: Judy Edmondson on 09-23-2023 Urine Microalbumin/Creatinine Ratio 7.5 mg/g CRE <30 [facility] Estimated GFR (MDRD) Amer 103 mL/min >60 [facility] Comment on above: GFR Calc Estimated GFR (MDRD) Non-Af Amer 85 mL/min >60 [facility] Comment on above: Non- GFR Calc VLDL Cholesterol 48 mg/dL 5-40 [facility] RBC Auto (Bld) [#/Vol]Ordere d By: Judy Edmondson on 09-23-2023 RBC (Bld) [#/Vol] 5.50 10*6/uL 4.6-6.2 [facility] Serum or plasma calcium smita urement (mass/volume)Ordered By: Judy Edmondson on 09-23-2023 Calcium [Mass/Vol] 9.3 mg/dL 8.5-10.1 [facility] Serum or plasma creatinine m easurement (mass/volume)Ordered By: Judy Edmondson on 09-23-2023 Creatinine [Mass/Vol] 1.00 mg/dL 0.70-1.[address] [facility] Comment on above: The validity of the calculated GFR & GFRAA in patients over 70 years has not been determined. Clinical correlation is essential. Serum or plasma urea nitroge n measurement (mass/volume)Ordered By: Judy Edmondson on 09-23-2023 Urea nitrogen [Mass/Vol] 11 mg/dL 7-18 [facility] Thin prep Papanicolaou smear with manual screeningOrdered By: Judy Edmondson on 09-23-2023 Thin prep Papanicolaou smear with manual screening 7.0 mg/L NO RANGE EST. [facility] Thin prep Papanicolaou smear with manual screening 4.0 g/dL 3.2-5.0 [facility] Thin prep Papanicolaou smear with manual screening 45 U/L 15-37 [facility] Thin prep Papanicolaou smear with manual screening 9 5-15 [facility] Urine creatinine measurement (mass/volume)Ordered By: Judy Edmondson on 09-23-2023 Creatinine (U) [Mass/Vol] 93.50 mg/dL NO RANGE EST. [facility] Whole blood hemoglobin A1c/t otal hemoglobin ratio (mass fraction)Ordered By: Judy Edmondson on 09-23-2023 HbA1c (Bld) [Mass fraction] 6.5 % 3.8-5.6 [facility] Comment on above: Normal < 5.7 % Predi abetic 5.7 - 6.4 % Diabetic >or= 6.5 % Please note range changes. Absolute lymphocyte countOrd ered By: Dr. Edmondson on 09-16-2022 Lymphocytes Auto (Unsp spec) [#/Vol] 2.26 10*3/uL 0.83-4.51 [facility] Basophil percentageOrdered B y: Dr. Edmondson on 09-16-2022 Basophils/100 WBC (Bld) 0.8 % 0-1 [facility] Bilirubin [Mass/Vol] 0.60 mg/dL 0.20-1.00 [facility] Comment on above: For patients on eltr ombopag therapy, use of Dimension Eva TBIL is not recommended. Chloride [Moles/Vol] 103 mmol/L 98-107 [facility] Cholesterol [Mass/Vol] 188 mg/dL <200 [facility] Comment on above: <200 mg/dL Desirable 200-240 mg/dL Borderline >240 mg/dL High Risk Eosinophils/100 WBC (Bld) 2.4 % 0-5 [facility] Glucose [Mass/Vol] 118 mg/dL 74-106 [facility] Comment on above: Fasting Glucose resu lt from 100 to 125 mg/dL suggests IMPAIRED HOMEOSTASIS per A.D.A. criteria. Neutrophils (Bld) [#/Vol] 2.1 10*3/uL 2.0-7.7 [facility] Neutrophils/100 WBC (Bld) 41.7 % 47-70 [facility] Potassium [Moles/Vol] 4.0 mmol/L 3.5-5.[address] [facility] Protein [Mass/Vol] 8.1 g/dL 6.4-8.2 [facility] Sodium [Moles/Vol] 138 mmol/L 136-145 [facility] Triglyceride [Mass/Vol] 156 mg/dL <199 [facility] Comment on above: The drugs N-Acetylcy steine and Metamizole may falsely depress this assay.Serum Triglycerides Reference Interval Normal <150 mg/dL Borderline high 150 - 199 mg/dL High 200 - 499 mg/dL Very High > or = 500 mg/dL WBC (Bld) [#/Vol] 5.1 10*3/uL 4.4-11.0 [facility] Blood erythrocytes count (nu mber/volume)Ordered By: Dr. Edmondson on 09-16-2022 RBC (Bld) [#/Vol] 5.29 10*6/uL 4.6-6.2 [facility] Blood hemoglobin measurement (mass/volume)Ordered By: Dr. Edmondson on 09-16-2022 Hemoglobin (Bld) [Mass/Vol] 14.8 g/dL 13.0-16.5 [facility] Blood lymphocytes/100 leukoc ytesOrdered By: Dr. Edmondson on 09-16-2022 Lymphocytes/100 WBC (Bld) 44.6 % 19-41 [facility] Blood monocytes/100 leukocyt esOrdered By: Dr. Edmondson on 09-16-2022 Monocytes/100 WBC (Bld) 10.3 % 0-10 [facility] Blood platelet mean volumeOr dered By: Dr. Edmondson on 09-16-2022 Platelet mean volume (Bld) [Entitic vol] 11.4 fL 6.2-12.0 [facility] Determination of erythrocyte mean corpuscular volume (MCV)Ordered By: Dr. Edmondson on 09-16-2022 MCV (RBC) [Entitic vol] 84.7 fL 80-94 [facility] Hematocrit Auto (Bld) [Volum e fraction]Ordered By: Dr. Edmondson on 09-16-2022 Hematocrit (Bld) [Volume fraction] 44.8 % 40-54 [facility] Laboratory - Chemistry and C hemistry - challengeOrdered By: Dr. Edmondson on 09-16-2022 ALP [Catalytic activity/Vol] 66 U/L 45-117 [facility] ALT [Catalytic activity/Vol] 44 U/L 16-61 [facility] CO2 [Moles/Vol] 27.0 mmol/L 21.0-32.0 [facility] Globulin (S) [Mass/Vol] 4.2 g/dL 2.2-4.2 [facility] Urea nitrogen/Creatinine [Mass ratio] 11.4 mg/mg 10-20 [facility] - Hematology and Cell countsOrdered By: Dr. Edmondson on 09-16-2022 Erythrocyte distribution width (RBC) [Entitic vol] 40.3 fL 35.1-43.9 [facility] Erythrocyte distribution width (RBC) [Ratio] 13.1 % 11.6-14.6 [facility] Immature granulocytes/100 WBC (Bld) 0.200 % 0.0-0.9 [facility] Comment on above: IG% - Immature Granu locytes (promyelocytes, myelocytes and metamyelocytes) > 1% indicates that a LEFT SHIFT is Present. MCH (RBC) [Entitic mass] 28.0 pg 27.0-32.0 [facility] Nucleated RBC/100 WBC (Bld) [Ratio] 0 % 0-5 [facility] MCHC Auto (RBC) [Mass/Vol]Or dered By: Dr. Edmondson on 09-16-2022 MCHC (RBC) [Mass/Vol] 33.0 g/dL 32-[address] [facility] No Panel InformationOrdered By: Dr. Edmondson on 09-16-2022 Estimated GFR (MDRD) Amer 121 mL/min >60 [facility] Comment on above: GFR Calc Estimated GFR (MDRD) Non-Af Amer 100 mL/min >60 [facility] Comment on above: Non- GFR Calc Hepatitis A IgM Antibody Negative Negative [facility] Comment on above: Performed at: [address] [id number] Director: Carlitos Badillo PhD, Phone: [phone] Hepatitis B Surface Antigen Non-Reactive Nonreactive [facility] Hepatitis C Antibody Non-Reactive Nonreactive [facility] Comment on above: Non Reactive: < 0.8 Equivocal: >/= 0.8 to < 1.0 Reactive: >/= 1.0The CDC recommends that a reactive/equivocal HCV antibody result be followed up by the HCV Nucleic Acid Amplificationtest ([id number]) Platelets bldOrdered By: Dr. Edmondson on 09-16-2022 Platelets (Bld) [#/Vol] 223 10*3/uL 150-450 [facility] Serum hepatitis B virus surf mynor antibody IgG detectionOrdered By: Dr. Edmondson on 09-16-2022 HBV surface IgG Ql (S) Reactive [facility] Comment on above: Non Reactive: Incons istent with immunity less than <10 mIU/mL Reactive: Consistent with immunity greater than or equal to 10 mIU/mL Serum or plasma albumin smita urement (mass/volume)Ordered By: Dr. Edmondson on 09-16-2022 Albumin [Mass/Vol] 3.9 g/dL 3.2-5.0 [facility] Serum or plasma albumin/glob ulin mass ratioOrdered By: Dr. Edmondson on 09-16-2022 Albumin/Globulin [Mass ratio] 0.9 {ratio} 0.9-2.4 [facility] Serum or plasma calcium smita urement (mass/volume)Ordered By: Dr. Edmondson on 09-16-2022 Calcium [Mass/Vol] 9.3 mg/dL 8.5-10.1 [facility] Serum or plasma cholesterol in HDL measurement (mass/volume)Ordered By: Dr. Edmondson on 09-16-2022 Cholesterol in HDL [Mass/Vol] 36 mg/dL >40 [facility] Comment on above: The drugs N-Acetylcy steine and Metamizole may falsely depress this assay. Reference Range HDL <40 mg/dL Low HDL Cholesterol HDL >or= 60 mg/dL High HDL Cholesterol Serum or plasma cholesterol in VLDL measurement (mass/volume)Ordered By: Dr. Edmondson on 09-16-2022 Cholesterol in VLDL [Mass/Vol] 31 mg/dL 5-40 [facility] Serum or plasma creatinine m easurement (mass/volume)Ordered By: Dr. Edmondson on 09-16-2022 Creatinine [Mass/Vol] 0.88 mg/dL 0.70-1.[address] [facility] Comment on above: The validity of the calculated GFR & GFRAA in patients over 70 years has not been determined. Clinical correlation is essential. Serum or plasma low density lipoprotein (LDL) cholesterol measurement (mass/volume)Ordered By: Dr. Edmondson on 09-16-2022 Cholesterol in LDL [Mass/Vol] 121 mg/dL 0-130 [facility] Serum or plasma urea nitroge n measurement (mass/volume)Ordered By: Dr. Edmondson on 09-16-2022 Urea nitrogen [Mass/Vol] 10 mg/dL 7-18 [facility] Thin prep Papanicolaou smear with manual screeningOrdered By: Dr. Edmondson on 09-16-2022 Thin prep Papanicolaou smear with manual screening 26 U/L 15-37 [facility] Thin prep Papanicolaou smear with manual screening 8 5-15 [facility] Vital Signs Date Time Vital Sign Value Performing Clinician Faci lity 08-25-2022 07:38-0500 Body height 170.[address] Ceasar Gutierres Work Phone: [facility] 08-25-2022 07:38-0500 Body mass index (BMI) [Ratio] 30.8 kg/m2 Dr. Ceasar Gutierres Work Phone: [facility] 08-25-2022 07:38-0500 Body temperature 97.2 [degF] Dr. Ceasar Gutierres Work Phone: [facility] 08-25-2022 07:38-0500 Body weight 89.[address] Ceasar Gutierres Work Phone: [facility] 08-25-2022 07:38-0500 Diastolic blood pressure 83 mm[Hg] Dr. Ceasar Gutierres Work Phone: [facility] 08-25-2022 07:38-0500 Heart rate 85 /min Dr. Ceasar Gutierres Work Phone: [facility] 08-25-2022 07:38-0500 Respiratory rate 18 /min Dr. Ceasar Gutierres Work Phone: [facility] 08-25-2022 07:38-0500 SaO2% (BldA) [Mass fraction] 98 % Dr. Ceasar Gutierres Work Phone: [facility] 08-25-2022 07:38-0500 Systolic blood pressure 144 mm[Hg] Dr. Ceasar Gutierres Work Phone: [facility] 01-15-2022 08:35-0400 Body mass index (BMI) [Ratio] 30.7 kg/m2 [employer]IPMENT TENDER-C Susannah Burgos [employer] EQUIPMENT TENDER Work Phone: [facility] Work Phone: 01-15-2022 08:35-0400 Body temperature 96.7 [degF] [employer] E[employer]IPMENT TENDER-C Susannah Burgos [employer]IATION EQUIPMENT TENDER Work Phone: [facility] Work Phone: 01-15-2022 08:35-0400 Body weight 88.9 kg [employer] EQUIPMENT TENDER-C Susannah Burgos [employer]CE [employer]IATION EQUIPMENT TENDER Work Phone: [facility] Work Phone: 01-15-2022 08:35-0400 Diastolic blood pressure 89 mm[Hg] [employer] EQUIPMENT TENDER-C Susannah Burgos [employer]CE VARIATION EQUIPMENT TENDER Work Phone: [facility] Work Phone: 01-15-2022 08:35-0400 Heart rate 73 /min [employer] EQUIPMENT TENDER-C Susannah Burgos FORCE VARIATION EQUIPMENT TENDER Work Phone: [facility] Work Phone: 01-15-2022 08:35-0400 Respiratory rate 17 /min [employer] EQUIPMENT TENDER-C Susannah Burgos [employer]CE [employer]IATION EQUIPMENT TENDER Work Phone: [facility] Work Phone: 01-15-2022 08:35-0400 SaO2% (BldA) [Mass fraction] 98 % [employer] E[employer]IPMENT TENDER-C Susannah Burgos FORCE VARIATION EQUIPMENT TENDER Work Phone: [facility] Work Phone: 01-15-2022 08:35-0400 Systolic blood pressure 138 mm[Hg] [employer] EQUIPMENT TENDER-C Susannah Burgos FORCE VARIATION EQUIPMENT TENDER Work Phone: [facility] Work Phone: 11-25-2021 13:57-0400 Body mass index (BMI) [Ratio] 30.7 kg/m2 [employer] E[employer]IPMENT TENDER-C Susannah Burgos FORCE VARIATION EQUIPMENT TENDER Work Phone: [facility] Work Phone: 11-25-2021 13:57-0400 Body temperature 97.8 [degF] [employer] E[employer]IPMENT TENDER-C Susannah Burgos FORCE [employer]IATION EQUIPMENT TENDER Work Phone: [facility] Work Phone: 11-25-2021 13:57-0400 Body weight 88.9 kg [employer] E[employer]IPMENT TENDER-C Susannah Burgos FORCE VARIATION EQUIPMENT TENDER Work Phone: [facility] Work Phone: 11-25-2021 13:57-0400 Diastolic blood pressure 97 mm[Hg] [employer] E[employer]IPMENT TENDER-C Susannah Burgos FORCE [employer]IATION EQUIPMENT TENDER Work Phone: [facility] Work Phone: 11-25-2021 13:57-0400 Heart rate 110 /min [employer] E[employer]IPMENT TENDER-C Susannah Burgos FORCE VARIATION EQUIPMENT TENDER Work Phone: [facility] Work Phone: 11-25-2021 13:57-0400 Respiratory rate 18 /min [employer]IPMENT TENDER-C Susannah Burgos [employer]CE [employer]IATION EQUIPMENT TENDER Work Phone: [facility] Work Phone: 11-25-2021 13:57-0400 SaO2% (BldA) [Mass fraction] 97 % [employer]MENT TENDER-C Susannah Burgos [employer]IATION EQUIPMENT TENDER Work Phone: [facility] Work Phone: 11-25-2021 13:57-0400 Systolic blood pressure 154 mm[Hg] [employer] EQUIPMENT TENDER-C Susannah Burgos FORCE VARIATION EQUIPMENT TENDER Work Phone: [facility] Work Phone: 11-25-2021 13:57-0400 Body height 170.18 cm [employer]IATION EQUIPMENT TENDER-Cony Burgos [employer]CE [employer]IATION EQUIPMENT TENDER Work Phone: [facility] Work Phone: 11-25-2021 13:57-0400 Body mass index (BMI) [Ratio] 30.7 kg/m2 [employer] TENDER-C Susannah Burgos [employer]IATION EQUIPMENT TENDER Work Phone: [facility] Work Phone: 11-25-2021 13:57-0400 Body temperature 97.8 [degF] [employer]MENT TENDER-C Susannah Burgos [employer]ATION EQUIPMENT TENDER Work Phone: [facility] Work Phone: 11-25-2021 13:57-0400 Body weight 88.9 kg [employer]IPMENT TENDER-C Susannah Burgos [employer]IATION EQUIPMENT TENDER Work Phone: [facility] Work Phone: 11-25-2021 13:57-0400 Diastolic blood pressure 97 mm[Hg] [employer] E[employer]IPMENT TENDER-C Susannah Burgos [employer]ATION EQUIPMENT TENDER Work Phone: [facility] Work Phone: 11-25-2021 13:57-0400 Heart rate 110 /min [employer] TENDER-C Susannah Burgos [employer]IATION EQUIPMENT TENDER Work Phone: [facility] Work Phone: 11-25-2021 13:57-0400 Respiratory rate 18 /min [employer]IPMENT TENDER-C Susannah Burgos [employer]ATION EQUIPMENT TENDER Work Phone: [facility] Work Phone: 11-25-2021 13:57-0400 SaO2% (BldA) [Mass fraction] 97 % [employer] TENDER-C Susannah Burgos [employer]ATION EQUIPMENT TENDER Work Phone: [facility] Work Phone: 11-25-2021 13:57-0400 Systolic blood pressure 154 mm[Hg] [employer] EQUIPMENT TENDER-Cony Burgos [employer]ATION EQUIPMENT TENDER Work Phone: [facility] Work Phone: Encounters Encounter Date Encounter Type Care Provider Facility Start: 12-19-2024 ambulatory [facility] Facility: [facility] Start: 10-30-2024 End: 10-30-2024 ambulatory [facility] Facility:[facility] Start: 10-07-2024 Encounter for genera l adult medical examination without abnormal findings Judy Edmondson [facility] Start: 10-03-2024 End: 10-03-[address] Judy Edmondson MD Work Phone: [facility] Work Phone: Start: 10-03-2024 End: 10-03-[address] Judy Edmondson MD -Laboratory, [facility] Start: 10-03-2024 End: 10-03-2024 ambulatory [facility] Facility:[facility] Start: 03-24-2024 End: 03-24-2024 ambulatory [facility] Facility:[facility] Start: 03-06-2024 End: 03-06-2024 ambulatory [facility] Start: 09-23-2023 End: 09-23-2023 ambulatory [facility] Work Phone: Start: 09-23-2023 End: 09-23-2023 Patient encounter procedure [facility], [facility] Start: 09-16-2022 End: 09-16-[address] Ceasar Gutierres Work Phone: [facility] Work Phone: Start: 09-16-2022 End: 09-16-[address] Ceasar Gutierres Work Phone: [facility], [facility] Start: 09-08-2022 End: 09-08-[address] Ceasar Gutierres Work Phone: [facility] Start: 08-25-2022 End: 08-25-[address] Ceasar Gutierres Work Phone: [facility] Start: 01-15-2022 End: 01-15-2022 Patient encounter procedure FORCE [employer] EQUIPMENT TENDERCarol Burgos FOR[employer]IATION EQUIPMENT TENDER Work Phone: [facility] Start: 12-02-2021 End: 12-02-2021 Patient encounter procedure FOR[employer] VARI[employer] EQUIPMENT TENDERCarol Burgos [employer]IATION EQUIPMENT TENDER [facility] Start: 11-25-2021 End: 11-25-2021 Patient encounter procedure [employer] EQUIPMENT TENDERCarol Burgos [employer]IATION EQUIPMENT TENDER Work Phone: [facility] Start: 10-30-2021 End: 10-30-2021 Patient encounter procedure FOR[employer] EQUIPMENT TENDERCarol Burgos FOR[employer]IATION EQUIPMENT TENDER [facility] Start: 08-26-2021 Patient encounter procedure FOR[employer] VARIATION EQUIPMENT TENDERCarol Burgos FORCE [employer]IATION EQUIPMENT TENDER Work Phone: [facility] Immunizations Immunization Date Immunization Notes Care Provider Fa cility 07-17-2020 tetanus toxoid, redu rufus diphtheria toxoid, and acellular pertussis vaccine, adsorbed [employer] EQUIPMENT TENDER-Cony Burgos [employer] EQUIPMENT TENDER Work Phone: [facility] Payers Date Payer Category Payer Self-pay [id number] 2024 Unknown [id number] [facility] [id number] Unknown [id number] Unknown [id number] [id number] Unknown [id number] [id number] [id number] Unknown [id number] [id number] [id number] Unknown [id number] [id number] Unknown [id number] [id number] [id number] Social History Date Type Detail Facility Start: 11-25-2021 End: 02-15-2023 Tobacco smoking status UTIS Unknown if ever smoked [facility] Start: 07-17-2020 Occasional [facility] Start: 07-17-2020 None [facility] Start: 07-17-2020 Alone [facility] Start: 07-31-2019 Non-smoker [facility] Start: 1975 Sex Assigned At Male [facility] Start: 02-15-2023 Tobacco smoking stat [facility] Ex-smoker (finding) [facility] Start: 10-07-2024 Sex Male (finding) [facility] Evaluation note Note Date & Type Note Facility Evaluation note Diagnosis Onset Date BMI 31.0-31.9,adult acute YA (obstructive sleep apnea) acute [facility] Work Phone: Evaluation note Note Date & Type Note Facility Evaluation note Diagnosis Onset Date BMI 31.0-31.9,adult acute YA (obstructive sleep apnea) acute BMI 31.0-31.9,adult acute YA (obstructive sleep apnea) acute [facility] Work Phone: Evaluation note Note Date & Type Note Facility Evaluation note No assessment information availa [facility] Work Phone: Reason for referral (narrative) Note Date & Type Note Facility Reason for referral (narrative) No reason for referral information available [facility] Work Phone: Chief Complaint and Reason for Visit Chief Complaint YA YA; AUTO CPAP *INVENTORY TAGGED 3 M FU YA; 11/27 CONF Reason for Visit BMI 31.0-31.9,adult YA (obstructive sleep apnea) Chief Complaint YA; AUTO CPAP *INVE NTORY TAGGED 3 M FU YA; 11/27 CONF 6 wk FU Reason for Visit BMI 31.0-31.9,adult YA (obstructive sleep apnea) BMI 31.0-31.9,adult YA (obstructive sleep apnea) Chief Complaint 6 M FU YA Reason for Visit BMI 31.0-31.9,adult YA (obstructive sleep apnea) Advance Directives No Advanced Directives Records Found Advance Directive Response Recorded Date/ Time Living Will No July 17 8:32pm Power of Learn To Swim Instructor No July 17 8:32pm Advance Directive Response Recorded Date/ Time Living Will No January 15, 2022 1 0:31am Power of Learn To Swim Instructor No January 15, 2022 10:31am Summary Purpose Family History No Family History Records Found Additional Source Comments Goals (unrecognized section and content) Goals may be documented in a n alternate sectionGoals may be documented in an alternate sectionGoals may be documented in an alternate sectionGoals may be documented in an alternate sectionGoals may be documented in an alternate section Care Teams (unrecognized sec tion and content) Team Status: Active Member Role Status Dates No Primary Care Physician Family Provider Active Dr. Judy Edmondson MD Primary Care Provider Active Team Status: Inactive Member Role Status Dates Dr. Ceasar Gutierres MD Primary Care Provider, Referring Provider Active Susannah Burgos [employer] EQUIPMENT TENDER, [employer] EQUIPMENT TENDER-C Attending Provider Active Team Status: Inactive Member Role Status Dates Susannah Burgos FORCE [employer]IATION EQUIPMENT TENDER, [employer]IATION EQUIPMENT TENDER-C Attending Provider Active Team Status: Inactive Member Role Status Dates Dr. Judy Edmondson MD Primary Care Provider, Attendin g Provider Active Team Status: Active Member Role Status Dates Dr. Judy Edmondson MD Primary Care Provider Active Team Status: Inactive Member Role Status Dates Dr. Judy Edmondson MD Primary Care Provider Active Start: October 03, 2024 End: October 03, 2024 Dr. Judy Edmondson MD Attending Provider Active Start: October 03, 2024 End: October 03, 2024 (unrecognized sect ion and content) No Status Records Found INFORMATION SOURCE (unrecogn ized section and content) DATE CREATED AUTHOR 12/20/2024 [facility] FOR RECORDS PERTAINING TO PATIENTS WHO ARE OR HAVE BEEN ENROLLED IN A CHEMICAL DEPENDENCY/SUBSTANCEABUSE PROGRAM, SOME INFORMATION MAY BE OMITTED. This clinical summary was aggregated from multiple sources. Caution should be exercised in using it in the provision of clinical care. This summary normalizes information from multiple sources, and as a consequence, information in this document may materially change the coding, format and clinical context of patient data. In addition, data may be omitted in some cases. CLINICAL DECISIONS SHOULD BE BASED ON THE PRIMARY CLINICAL RECORDS. [facility] [employer] [facility]. provides no warranty or guarantee of the accuracy or completeness of information in this document.
[2025-01-25 12:59] LABS: AST(SGOT) 42 U/L (<=37); Alanine Aminotransfer ALT/SGPT 54 U/L (<=46); Albumin, Serum 4.4 g/dL (3.5-5.0); Alkaline Phosphatase 54 U/L (40-129); Bilirubin, Direct 0.27 mg/dL (0.00-0.30); Globulin 3.7 g/dL (2.2-4.2)
== END | disposition home or self-care (01) ==
PROVIDERS: PCP Family Medicine; Visit Provider Family Medicine
DX: E11.9 Type 2 diabetes mellitus without complications (principal); K70.0 Alcoholic fatty liver
CPT/HCPCS: 36415; 80076; 83036